=== PATIENT | female | born 1955 | race Caucasian/White ===

== ENCOUNTER 2023-12-22 01:09 | Outpatient (CLI) | payer MEDICARE, OTHER, SELFPAY ==
--- OUTSIDE RECORDS SUMMARY | 2023-12-22 01:11 | XMS_ITS | Continuity of Care Document ---
Author Organization [facility] Address [address] [place] [address] Care Team Providers Care Food Scientist Name Role Phone Wang Abdalla DO Primary Care Physician Encounter [facility] NBR [id number] Date(s): 12/23/22 - 12/23/22 [facility] [address] [place] [address]- [place] Discharge Disposition: Home Allergies, Adverse Reactions, Alerts Substance Reaction Severity Status morphine Anaphylaxis Severe Active penicillin V potassium Anaphylaxis Severe Activ e Bee Stings 1 Unknown Severe Active Spice 2 Unknown Unknown Active 1Outside Source Comment: ECW did not list reaction%2Fseverity 2Outside Source Comment: QUINN. 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[employer] Medications [facility] Prescription 8 EA, TEST DIRECTED TODAY, 0 Refill(s) Start Date: 06/23/22 Status: Ordered cefuroxime 500 mg oral tablet 1 tab, Oral, every 12 hr, # 60 tab, 5 Refill(s), Pharmacy: [facility] #[id number] Start Date: 10/07/22 Status: Ordered diclofenac 3% topical gel 100 g, APPLY TOPICALLY TO THE AFFECTED AREA TWICE DAILY., 0 Refill(s) Start Date: 06/23/22 Status: Ordered Eliquis 5 mg oral tablet 5 mg = 1 tab, Oral, BID, # 180 tab, 4 Refill(s), Pharmacy: [facility] #[id number] Start Date: 05/13/22 Stop Date: 08/06/23 Status: Ordered Fish Oil 1000 mg oral capsule 1,000 mg = 1 cap, Oral, Daily, # 90 cap, 0 Refill(s) Start Date: 05/13/22 Stop Date: 09/22/22 Status: Ordered gabapentin 300 mg oral capsule See Instructions, 1 capsule by mouth in the AM and 1 capsule in the PM as needed, and take 2 capsules at bedtime consistently, # 360 cap, 1 Refill(s), Pharmacy: [facility] #[id number] Start Date: 12/23/22 Status: Ordered antwan oral tablet 500 mg, Oral, Daily, # 90 cap, 0 Refill(s) Start Date: 05/13/22 Stop Date: 09/21/22 Status: Ordered Turmeric 500 mg =, Oral, Daily, # 90 cap, 0 Refill(s) Start Date: 05/13/22 Stop Date: 09/22/22 Status: Ordered Vitamin C 250 mg oral tablet 750 mg = 3 tab, Oral, Daily, # 270 cap, 0 Refill(s) Start Date: 05/13/22 Stop Date: 09/22/22 Status: Ordered Vitamin D3 50 mcg (2000 intl units) oral tablet, chewable 50 mcg = 1 tab, Oral, Daily, # 90 tab Start Date: 05/13/22 Stop Date: 09/22/22 Status: Ordered Problem List Condition Confirmation Course Effective Dates Status Health St atus Informant History of recurrent deep vein thrombosis (DVT) Confirmed Active Neuropathy of both feet Confirmed Active Obesity Confirmed Active Raynaud's phenomenon Confirmed Active Procedures Procedure Date Related Diagnosis Body Site Status Cholecystectomy Completed Social History Social History Type Response Tobacco Never tobacco user T obacco Use:. Sex Patient Care team information Care Team Personnel Name: Wang Abdalla DO Position: Physician Member Role: Primary Care Physician Address: Address: [address] [place] [phone] [place] Care Team Related Persons Name: RUTHIE PAZ Address: Home
--- OUTSIDE RECORDS SUMMARY | 2023-12-22 01:11 | XMS_ITS | Continuity of Care Document ---
Author Organization [facility] Address [address] [place] [address] Care Team Providers Care Drier And Pulverizer Tender Name Role Phone Wang Abdalla DO Primary Care Physician Encounter [facility] [facility] NBR [id number] Date(s): 07/15/22 - 07/15/22 [facility] [address] [place] [address] Discharge Disposition: Home Allergies, Adverse Reactions, Alerts Substance Reaction Severity Status morphine Anaphylaxis Severe Active penicillin V potassium Anaphylaxis Severe Activ e Bee Stings 1 Unknown Severe Active Spice 2 Unknown Unknown Active 1Outside Source Comment: ECW did not list reaction%2Fseverity 2Outside Source Comment: QUINN. 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[employer] Medications [facility] - Misc Prescription 8 EA, TEST DIRECTED TODAY, 0 Refill(s) Start Date: 06/23/22 Status: Ordered cefuroxime 500 mg oral tablet 500 mg = 1 tab, Oral, every 12 hr, # 60 tab, 1 Refill(s), Pharmacy: [facility] #[id number] Start Date: 05/13/22 Stop Date: 07/12/22 Status: Ordered diclofenac 3% topical gel 100 g, APPLY TOPICALLY TO THE AFFECTED AREA TWICE DAILY., 0 Refill(s) Start Date: 06/23/22 Status: Ordered Eliquis 5 mg oral tablet 5 mg = 1 tab, Oral, BID, # 180 tab, 4 Refill(s), Pharmacy: [facility] #[id number] Start Date: 05/13/22 Stop Date: 08/06/23 Status: Ordered Fish Oil 1000 mg oral capsule 1,000 mg = 1 cap, Oral, Daily, # 90 cap, 0 Refill(s) Start Date: 05/13/22 Stop Date: 09/22/22 Status: Ordered gabapentin 300 mg oral capsule See Instructions, 1 capsule in the AM, 1 in the PM, and 2 capsules at bedtime, # 360 cap, 0 Refill(s), Pharmacy: [facility] #[id number] Start Date: 06/13/22 Status: Ordered antwan oral tablet 500 mg, [...] Effective Dates Status Health St atus Informant DVT - Deep vein thrombosis Confirmed Active Lyme disease Confirmed Active Neuropathy of both feet Confirmed Active Patient Care team information Care Team Personnel Name: Wang Abdalla DO Position: Physician Member Role: Primary Care Physician Address: Address: [address] [place] [phone] [place] Care Team Related Persons Name: RUTHIE PAZ
--- OUTSIDE RECORDS SUMMARY | 2023-12-22 01:11 | XMS_ITS | Continuity of Care Document ---
Author Organization [facility] Ambulatory [facility] Address [address] [place] [address] Care Team Providers Care Stable Manager Name Role Phone Wang Abdalla DO Primary Care Physician Encounter [facility] [facility] NBR [id number] Date(s): 07/18/22 - 07/18/22 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[employer] Medications [facility] - Misc Prescription 8 EA, TEST DIRECTED TODAY, 0 Refill(s) Start Date: 06/23/22 Status: Ordered cefuroxime 500 mg oral tablet 500 mg = 1 tab, Oral, every 12 hr, # 60 tab, 1 Refill(s), Pharmacy: [facility] #[id number] Start Date: 05/13/22 Stop Date: 07/12/22 Status: Ordered diclofenac 3% topical gel 100 g, APPLY TOPICALLY TO THE AFFECTED AREA TWICE DAILY., 0 Refill(s) Start Date: 06/23/22 Status: Ordered Eliquis 5 mg oral tablet 5 mg = 1 tab, Oral, BID, # 180 tab, 4 Refill(s), Pharmacy: [facility] #[id number] Start Date: 05/13/22 Stop Date: 08/06/23 Status: Ordered Fish Oil 1000 mg oral capsule 1,000 mg = 1 cap, Oral, Daily, # 90 cap, 0 Refill(s) Start Date: 05/13/22 Stop Date: 09/22/22 Status: Ordered gabapentin 300 mg oral capsule See Instructions, 1 capsule in the AM, 1 in the PM, and 2 capsules at bedtime, # 360 cap, 0 Refill(s), Pharmacy: [facility] #[id number] Start Date: 06/13/22 Status: Ordered antwan oral [...] Member Role: Primary Care Physician Address: Address: [address] [place] [phone] [place] Care Team Related Persons Name: RUTHIE PAZ
--- OUTSIDE RECORDS SUMMARY | 2023-12-22 01:11 | XMS_ITS | Continuity of Care Document ---
Author Organization [facility] Address [address] [place] [phone] Care Team Providers Care Market Research Senior Project Manager Name Role Phone Wang Abdalla DO Primary Care Physician Encounter [facility] NBR [id number] Date(s): 07/15/22 - 07/15/22 [facility] [address] [place] [address] [place] Discharge Disposition: Home or Self Care Attending Physician: Wang Abdalla DO Admitting Physician: Wang Abdalla DO Referring Physician: Wang Abdalla DO Allergies, Adverse Reactions, Alerts Substance Reaction Severity Status morphine Anaphylaxis Severe Active penicillin V potassium Anaphylaxis Severe Activ e Bee Stings 1 Unknown Severe Active Spice 2 Unknown Unknown Active 1Outside Source Comment: ECW did not list reaction%2Fseverity 2Outside Source Comment: QUINN. 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 Medications [facility] - Misc Prescription 8 EA, TEST DIRECTED TODAY, 0 Refill(s) Start Date: 06/23/22 Status: Ordered cefuroxime 500 mg oral tablet 500 mg = 1 tab, Oral, every 12 hr, # 60 tab, 1 Refill(s), Pharmacy: [facility] #[id number] Start Date: 05/13/22 Stop Date: 07/12/22 Status: Ordered diclofenac 3% topical gel 100 g, APPLY TOPICALLY TO THE AFFECTED AREA TWICE DAILY., 0 Refill(s) Start Date: 06/23/22 Status: Ordered Eliquis 5 mg oral tablet 5 mg = 1 tab, Oral, BID, # 180 tab, 4 Refill(s), Pharmacy: [facility] #[id number] Start Date: 05/13/22 Stop Date: 08/06/23 Status: Ordered Fish Oil 1000 mg oral capsule 1,000 mg = 1 cap, Oral, Daily, # 90 cap, 0 Refill(s) Start Date: 05/13/22 Stop Date: 09/22/22 Status: Ordered gabapentin 300 mg oral capsule See Instructions, 1 capsule in the AM, 1 in the PM, and 2 capsules at bedtime, # 360 cap, 0 Refill(s), Pharmacy: [facility] #[id number] Start Date: 06/13/22 Status: Ordered antwan oral [...] Active Neuropathy of both feet Confirmed Active Results Orders for Microbiology Reports Name Date Sputum Culture 07/15/22 Microbiology Reports TEST:Sputum Culture STATUS:Modified/Amended/Cor BODY SITE: SOURCE:Sputum COLLECTED DATE/TIME:07/15/22 9:30 AM FINAL REPORT Spoke with Vicki at [facility] 07/15/2022 1331 zeb Sputum unsatisfactory for culture. Microscopic evaluation indicates significant upper respiratory contamination. Submit another specimen. STAIN REPORT 10-25 White Blood Cells >25 squamous epithelial cells Q Score 0, specimen unsuitable for culture Radiology Reports * Exam Date Time Procedure Performing Provider Status 07/15/22 11:28 AM XR Chest 1 View Cody Garduno ; Auth (Verified) Notes: (XR Chest 1 View) Reason For Exam: cough, rule out TB XR Chest 1 View EXAM DESCRIPTION: XR Chest 1 View 07/15/2022 INDICATION: COUGH, RULE OUT TB COMPARISON: CT chest examination from 05/11/2022 FINDINGS: No focal infiltrate or pulmonary edema. Increased density overlying the left lung base region consistent with soft tissue attenuation artifact. Small noncalcified nodular opacities described on previous CT chest examination are not well seen by routine radiography. Normal cardiomediastinal contour. No significant pleural effusion or pneumothorax. Spondylotic changes of the dorsal spine. IMPRESSION: No active chest disease. JOB #: [id number] Final Signed by: Alexander Roach MD Signed (Electronic Signature): 07/15/2022 12:44 pm XR Chest Single view * Alexander Roach MD: VERIFY, VERIFY Event Display: Report EXAM DESCRIPTION: XR Chest 1 View 07/15/2022 INDICATION: COUGH, RULE OUT TB COMPARISON: CT chest examination from 05/11/2022 FINDINGS: No focal infiltrate or pulmonary edema. Increased density overlying the left lung base region consistent with soft tissue attenuation artifact. Small noncalcified nodular opacities described on previous CT chest examination are not well seen by routine radiography. Normal cardiomediastinal contour. No significant pleural effusion or pneumothorax. Spondylotic changes of the dorsal spine. IMPRESSION: No active chest disease. JOB #: [id number] Final Signed by: Alexander Roach MD Signed (Electronic Signature): 07/15/2022 12:44 pm Patient Care team information Care Team Personnel Name: Wang Abdalla DO Position: Physician Member Role: Primary Care Physician Address: Address: [address] [place] [phone] [place] Care Team Related Persons Name: RUTHIE PAZ
--- OUTSIDE RECORDS SUMMARY | 2023-12-22 01:11 | XMS_ITS | Continuity of Care Document ---
Author Organization [facility] Ambulatory Clinics Address [address] [place] [address] Care Team Providers Care Ethernet Network Architect Name Role Phone Wang Abdalla DO Primary Care Physician [phone] Encounter [facility] NBR [id number] Date(s): 12/23/22 - 12/23/22 [facility] Ambulatory Clinics [address] [place] [address] [place] Encounter Diagnosis Neuropathy of both feet(Discharge Diagnosis) - 12/16/22 History of recurrent deep vein thrombosis (DVT)(Discharge Diagnosis) - 12/16/22 Raynaud's phenomenon(Discharge Diagnosis) - 12/23/22 History of Lyme disease(Discharge Diagnosis) - 12/23/22 Discharge Disposition: Home or Self Care Attending Physician: Elena Monae MD Allergies, Adverse Reactions, Alerts Substance Reaction Severity Status morphine Anaphylaxis Severe Active penicillin V potassium Anaphylaxis Severe Activ e Bee Stings 1 Unknown Severe Active Spice 2 Unknown Unknown Active 1Outside Source Comment: ECW did not list reaction%2Fseverity 2Outside Source Comment: ECW did not specify reaction%2Fseverity Functional Status 12/23/22 Other exposure to Infectious Disease Non e Immunizations Given and Recorded Vaccine Date Status Refusal Reason SARS-CoV-2 (COVID-19) mRNA-1273 vaccine 1 07/06/21 Recorded influenza, unspecified formulation 2 03/15/21 Gumaro rded 1Result Comment: Unit: Unknown 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[employer] Medications [facility] - Misc Prescription 8 EA, TEST DIRECTED TODAY, 0 Refill(s) Start Date: 06/23/22 Status: Ordered cefuroxime 500 mg oral tablet 1 tab, Oral, every 12 hr, # 60 tab, 5 Refill(s), Pharmacy: [facility] #[id number] Start Date: 10/07/22 Status: Ordered diclofenac 3% topical gel 100 g, APPLY TOPICALLY TO THE AFFECTED AREA TWICE DAILY., 0 Refill(s) Start Date: 06/23/22 Status: Ordered Eliquis 5 mg oral tablet 5 mg = 1 tab, Oral, BID, # 180 tab, 4 Refill(s), Pharmacy: [facility] #[id number] Start Date: 05/13/22 Stop Date: 08/06/23 Status: [...] consistently, # 360 cap, 1 Refill(s), Pharmacy: [facility] #[id number] Start Date: 12/23/22 Status: Ordered antwan oral [...] Related Diagnosis Body Site Status Cholecystectomy Completed Vital Signs Most recent to oldest [Reference Range]: 1 Peripheral Pulse Rate [60-100 bpm] 75 bp m (12/23/22 1:41 PM) Blood Pressure [90-140/60-90 mmHg] 120/8 4mmHg (12/23/22 1:41 PM) Weight 118.7 kg (12/23/22 1:41 PM) Weight Measured (lbs) 261.688 lb (12/23/22 1:41 PM) [place] Body Weight Calculated 50.1 kg (12/23/22 1:41 PM) Height 157.48 cm (12/23/22 1:41 PM) Height/Length Measured (inches) 62 inch (12/23/22 1:41 PM) BSA Measured 2.28 m2 (12/23/22 1:41 PM) Body Mass Index 47.86 kg/m2 (12/23/22 1:41 PM) Social History Social History Type Response Tobacco Never tobacco user T obacco Use:. Sex Physician Outpatient Note * Elena Monae MD: PERFORM Event Display: Office Clinic Note Physician Authored Date: [id number] JEREMY JONAS :1955 Age:67 years Sex:Female Visit Date:12/23/2022 Primary Care Physician: Wang Abdalla DO Chief Complaint Med follow up. History of Present Illness Presents for follow-up/medication review. Last seen in office 05/2021, had telephone visit 06/2022. Accompanied by her Roejlio today. She avoids in-facility visits due to Covid isolation concerns related to her weak immune system. Takes gabapentin for neuropathy, consistently takes??600 mg QHS and in addition she variably takes 300 mg BID as daytime doses as needed, notes it makes her sleepy but some days she does need the full 1200 mg dose to control her symptoms. Neuropathy started after her Lyme infection,??affects her legs up to her knees and also her hands, worst affected area is the bottom of her feet, feels like electric zingers or like walking acrossshards of glass. Her hands turn yellow, purple, and white, like a corpse when exposed to cold. Worsening over time- tries to keep her hands warm, wears mittens consistently. Review of Systems as per HPI Physical Exam Vitals & Measurements HR:??75??(Peripheral)?? BP:??120/84?? SpO2:??99%?? HT:??157.48??cm?? WT:??118.7??kg?? BMI:??47.86?? BSA:??2.28?? Gen: obese, well-appearing, in no acute distress CV: regular rate and rhythm, no murmurs Resp: normal respiratory effort, lungs clear to auscultation bilaterally Ext: no edema or skin lesions on feet, no loss of sensation in area of neuropathic pain (bilateral lower legs and feet and both hands) Psych/MSE: attentive,??normal mood, appropriate affect Assessment/Plan 1.??Neuropathy of both feet??G57.93 stable on gabapentin 300 mg BID PRN??+ 600 mg QHS consistently reviewed with her that gabapentin is a??schedule V controlled medication under the SOFY and requiresin-person review annually - she is understanding of this requirement 2.??History of Lyme disease??Z86.19 attributed cause of her neuropathic pain 3.??Raynaud's phenomenon??I73.00 encouraged ongoing warming techniques including mittens and adequate heating offered nifedipine orally and topical nitroglycerin, she does not feel that further medications areneeded at this time 4.??History of recurrent deep vein thrombosis (DVT)??Z86.718 stable on Eliquis 5 mg BID Orders: gabapentin 300 mg oral capsule, See Instructions, 1 capsule by mouth in the AM and 1 capsule in thePM as needed, and take 2 capsules at bedtime consistently, # 360 cap, 1 Refill(s), Pharmacy: [facility] #[id number] Problem List/Past Medical History Ongoing History of recurrent deep vein thrombosis (DVT) Neuropathy of both feet Obesity Raynaud's phenomenon Procedure/Surgical History ???Cholecystectomy Medications AAA - Misc Prescription cefuroxime 500 mg oral tablet, 1 tab, Oral, every 12 hr diclofenac 3% topical gel Eliquis 5 mg oral tablet, 5 mg= 1 tab, Oral, BID, 4 refills Fish Oil 1000 mg oral capsule, 1000 mg= 1 cap, Oral, Daily gabapentin 300 mg oral capsule, See Instructions antwan oral tablet, 500 mg, Oral, Daily Turmeric, 500 mg, Oral, Daily Vitamin C 250 mg oral tablet, 750 mg= 3 tab, Oral, Daily Vitamin D3 50 mcg (2000 intl units) oral tablet, chewable, 50 mcg= 1 tab, Oral, Daily Allergies Bee Stings??(Unknown) morphine??(Anaphylaxis) penicillin V potassium??(Anaphylaxis) Spice??(Unknown) Social History Alcohol Never Electronic Cigarette/Vaping Electronic Cigarette Use: Never. Substance Use Never Tobacco Never tobacco user Tobacco Use:. Immunizations Vaccine Date Status SARS-CoV-2 (COVID-19) mRNA-1273 vaccine 07/06/2021 Recorded Comments : Unit: Unknown influenza, unspecified formulation 03/15/2021 Recorded Comments : Ground Transportation Operator: Sanofi Pasteur Electronically Signed on 12/23/22 04:26 PM Elena Monae MD Patient Care team information Care Team Personnel Name: Wang Abdalla DO Position: Physician Member Role: Primary Care Physician Address: Address: [address] [place] [phone] [place] Care Team Related Persons Name: ROJELIO PAZ Address: Home
--- OUTSIDE RECORDS SUMMARY | 2023-12-22 01:11 | XMS_ITS | Continuity of Care Document ---
Author Organization [facility] Address [address] [place] [address] Care Team Providers Care Director Pharmacovigilance Name Role Phone Wang Abdalla DO Primary Care Physician Encounter [facility] NBR [id number] Date(s): 07/11/22 - 07/11/22 [facility] [address] [place] [address]- [place] Discharge Disposition: Home Allergies, Adverse Reactions, Alerts Substance Reaction Severity Status morphine Anaphylaxis Severe Active penicillin V potassium Anaphylaxis Severe Activ e Bee Stings 1 Unknown Severe Active Spice 2 Unknown Unknown Active 1Outside Source Comment: ECW did not list reaction%2Fseverity 2Outside Source Comment: QUINN. 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[employer] Medications [facility] - Misc Prescription 8 EA, TEST DIRECTED TODAY, 0 Refill(s) Start Date: 06/23/22 Status: Ordered cefuroxime 500 mg oral tablet 500 mg = 1 tab, Oral, every 12 hr, # 60 tab, 1 Refill(s), Pharmacy: [facility] #[id number] Start Date: 05/13/22 Stop Date: 07/12/22 Status: Ordered diclofenac 3% topical gel 100 g, APPLY TOPICALLY TO THE AFFECTED AREA TWICE DAILY., 0 Refill(s) Start Date: 06/23/22 Status: Ordered Eliquis 5 mg oral tablet 5 mg = 1 tab, Oral, BID, # 180 tab, 4 Refill(s), Pharmacy: [facility] #[id number] Start Date: 05/13/22 Stop Date: 08/06/23 Status: Ordered Fish Oil 1000 mg oral capsule 1,000 mg = 1 cap, Oral, Daily, # 90 cap, 0 Refill(s) Start Date: 05/13/22 Stop Date: 09/22/22 Status: Ordered gabapentin 300 mg oral capsule See Instructions, 1 capsule in the AM, 1 in the PM, and 2 capsules at bedtime, # 360 cap, 0 Refill(s), Pharmacy: [facility] #[id number] Start Date: 06/13/22 Status: Ordered antwan oral [...] Member Role: Primary Care Physician Address: Address: [address] [place] [phone] [place] Care Team Related Persons Name: RUTHIE PAZ
--- OUTSIDE RECORDS SUMMARY | 2023-12-22 01:11 | XMS_ITS | Continuity of Care Document ---
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[employer] Medications AAA - Misc Prescription 8 EA, TEST DIRECTED TODAY, 0 Refill(s) Start Date: 06/23/22 Status: Ordered cefuroxime 500 mg oral tablet 500 mg = 1 tab, Oral, every 12 hr, # 60 tab, 1 Refill(s), Pharmacy: [facility] #[id number] Start Date: 05/13/22 Stop Date: 07/12/22 Status: Ordered diclofenac 3% topical gel 100 g, APPLY TOPICALLY TO THE AFFECTED AREA TWICE DAILY., 0 Refill(s) Start Date: 06/23/22 Status: Ordered Eliquis 5 mg oral tablet 5 mg = 1 tab, Oral, BID, # 180 tab, 4 Refill(s), Pharmacy: [facility] #[id number] Start Date: 05/13/22 Stop Date: 08/06/23 Status: Ordered Fish Oil 1000 mg oral capsule 1,000 mg = 1 cap, Oral, Daily, # 90 cap, 0 Refill(s) Start Date: 05/13/22 Stop Date: 09/22/22 Status: Ordered gabapentin 300 mg oral capsule See Instructions, 1 capsule in the AM, 1 in the PM, and 2 capsules at bedtime, # 360 cap, 0 Refill(s), Pharmacy: [facility] #[id number] Start Date: 06/13/22 Status: Ordered antwan oral [...] Member Role: Primary Care Physician Address: Address: [address] [place] [phone] [place] Care Team Related Persons Name: RUTHIE PAZ
--- OUTSIDE RECORDS SUMMARY | 2023-12-22 01:11 | XMS_ITS | Continuity of Care Document ---
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: [employer] Medications [facility] [place] 8 EA, TEST DIRECTED TODAY, 0 Refill(s) Start Date: 06/23/22 Status: Ordered cefuroxime 500 mg oral tablet 1 tab, Oral, every 12 hr, # 60 tab, 5 Refill(s), Pharmacy: [id number] Start Date: 10/07/22 Status: Ordered diclofenac 3% topical gel 100 g, APPLY TOPICALLY TO THE AFFECTED AREA TWICE DAILY., 0 Refill(s) Start Date: 06/23/22 Status: Ordered Eliquis 5 mg oral tablet 5 mg = 1 tab, Oral, BID, # 180 tab, 4 Refill(s), Pharmacy: [id number] Start Date: 05/13/22 Stop Date: 08/06/23 Status: [...] consistently, # 360 cap, 1 Refill(s), Pharmacy: [id number] #[id number] Start Date: 12/23/22 Status: Ordered antwan oral [...] Member Role: Primary Care Physician Address: Address: [address] [place] [phone] [place] Care Team Related Persons Name: RUTHIE PAZ Address: Home
--- OUTSIDE RECORDS SUMMARY | 2023-12-22 01:11 | XMS_ITS | Continuity of Care Document ---
Author Organization [facility] Address [address] [place] [address] Care Team Providers Care Bridal Service Sales And Management Name Role Phone Wang Abdalla DO Primary Care Physician Encounter [facility] NBR [id number] Date(s): 11/29/22 - 11/29/22 [facility] [address] [place] [address]- Encounter Diagnosis Other nonspecific abnormal finding of lung field(Final) - Other fatigue(Final) - Pain in unspecified joint(Final) - Encounter for screening for other metabolic disorders(Final) - Encounter for screening for lipoid disorders(Final) - Discharge Disposition: Home or Self Care Attending [...] Assessment and Plan Diagnostic Tests Pending * Rheumatoid Arthritis Factor LC 11/29/22 Immunizations Given and Recorded Vaccine Date Status Refusal Reason SARS-CoV-2 (COVID-19) [id number] vaccine 1 07/06/21 Recorded influenza, unspecified formulation 2 03/15/21 Gumaro rded 1Result Comment: Unit: Unknown 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: [employer] Medications [facility] - Misc Prescription 8 EA, TEST DIRECTED TODAY, 0 Refill(s) Start Date: 06/23/22 Status: Ordered cefuroxime 500 mg oral tablet 1 tab, Oral, every 12 hr, # 60 tab, 5 Refill(s), Pharmacy: [facility] #[id number] Start Date: 10/07/22 Status: Ordered diclofenac 3% topical gel 100 g, APPLY TOPICALLY TO THE AFFECTED AREA TWICE DAILY., 0 Refill(s) Start Date: 06/23/22 Status: Ordered Eliquis 5 mg oral tablet 5 mg = 1 tab, Oral, BID, # 180 tab, 4 Refill(s), Pharmacy: [facility] #[id number] Start Date: 05/13/22 Stop Date: 08/06/23 Status: Ordered Fish Oil 1000 mg oral capsule 1,000 mg = 1 cap, Oral, Daily, # 90 cap, 0 Refill(s) Start Date: 05/13/22 Stop Date: 09/22/22 Status: Ordered gabapentin 300 mg oral capsule See Instructions, 1 capsule in the AM, 1 in the PM, and 2 capsules at bedtime, # 360 cap, 0 Refill(s), Pharmacy: [facility] #[id number] Start Date: 09/08/22 Status: Ordered antwan oral tablet 500 mg, [...] Neuropathy of both feet Confirmed Active Results Laboratory List Name Date DILIP w/Reflex LC 11/29/22 C-Reactive Protein 11/29/22 Comprehensive Metabolic Panel (CMP) Lipid Panel 11/29/22 Vitamin B12 Level 11/29/22 Vitamin D 25 Hydroxy Level 11/29/22 Most recent to oldest [Reference Range]: 1 BUN [8-26 mg/dL] 10 mg/dL (11/29/22 12:24 PM) Cholesterol Total [129-209 mg/dL] 205 mg /dL (11/29/22 12:24 PM) LDL 133.8 1 *NA* (11/29/22 PM) Glucose Level [74-106 mg/dL] 94 mg/dL (11/29/22 12: PM) Potassium Level [3.5-5.1 mmol/L] 4.7 mmo l/L (11/29/22 12 PM) HDL [40-80 mg/dL] 38 mg/dL *LOW* (11/29/22 PM) CRP [<=10.0 mg/L] <8.0 mg/L (11/29/22 PM) AST [15-41 IntlUnit/L] 42 IntlUnit/L *HI* (11/29/22: PM) ALT [14-54 IntlUnit/L] 59 IntlUnit/L *HI* (11/29/22:24 PM) Osmolality [275-295 mOsm/kg] 273 mOsm/kg *LOW* (11/29/22 PM) Sodium Level [134-143 mmol/L] 137 mmol/L (11/29/22:24 PM) Chol/HDL 5.4 2 *NA* (11/29/22: PM) Vitamin D 25 OH [30.0-100.0 ng/mL] 27.7 ng/mL 3 *LOW* (11/29/22 PM) Triglycerides [10-150 mg/dL] 167 mg/dL *HI* (11/29/22:24 PM) Calcium Level [8.9-10.3 mg/dL] 9.7 mg/dL (11/29/22 12:24 PM) Albumin Level [3.5-5.0 g/dL] 4.0 g/dL (11/29/22 PM) Protein Total [6.5-8.1 g/dL] 7.3 g/dL (11/29/22 12:24 PM) Bilirubin Total [0.2-1.2 mg/dL] 0.8 mg/d L (11/29/22 12:24 PM) B12 Level [180-914 pg/mL] 300 pg/mL (11/29/22 12:24 PM) Alk Phos [38-130 IntlUnit/L] 106 IntlUni t/L (11/29/22 12:24 PM) CO2 [22-32 mmol/L] 28 mmol/L (11/29/22 12:24 PM) Chloride Level [98-111 mmol/L] 100 mmol/ L (11/29/22 12:24 PM) A/G Ratio [1.0-2.5 g/dL] 1.2 g/dL (11/29/22 12:24 PM) BUN/Creat Ratio [8.0-20.0] 10.9 (11/29/22 12:24 PM) Globulin [2.3-3.5 g/dL] 3.3 g/dL (11/29/22 12:24 PM) DILIP Direct LC [Negative] Negative 4 *NA* (11/29/22 12:24 PM) Creatinine Level [0.44-1.00 mg/dL] 0.92 mg/dL (11/29/22 12:24 PM) Anion Gap [3.0-12.0] 9.0 (11/29/22 12:24 PM) eGFR CKD-EPI [>=60 mL/min/1.73 m2] 68 mL /min/1.73 m2 (11/29/22 12:24 PM) 1Interpretive Data: Optimal: Less than 100 mg/dL Above Optimal: 100 - 129 mg/dL Borderline High: 130 - 159 mg/dL High: 160 - 189 mg/dL Very High: > or = 190 mg/dL 2Interpretive Data: RISK MALE FEMALE 1/2 average 3.4 3.3 Average 5.0 4.4 2x Average 9.6 7.1 3x Average 23.4 11.0 3Interpretive Data: VIT D STATUS: RANGE: Deficient <20 ng/mL Insufficiency 20-30 ng/mL Sufficiency 30-100 ng/mL Toxicity >100 ng/mL Patients that have undergone flourescein dye angiography without allowing enough time for clearanceof the flourescein dye may have falsely elevated Vitamin D levels. 4Result Comment: Performed At: [facility] [address] [id number] Cory Rivas MD Ph:[phone] Radiology Reports * Exam Date Time Procedure Performing Provider Status 11/29/22 12:[address] Chest w/o Contrast Sandy Cat; Nikolas (Verified) Notes: (CT Chest w/o Contrast) Reason For Exam: pulmonary nodules CT Chest w/o Contrast EXAM DESCRIPTION: CT Chest w/o Contrast 11/29/2022 INDICATION: PULMONARY NODULES TECHNIQUE: All CT scans at this facility use at least one of these dose optimization techniques: Automated exposure control; mA and/or kV adjustment per patient size (includes targeted exams where dose is matched to clinical indication); or iterative reconstruction. Technique: Axial CT images of the chest without intravenous contrast administration COMPARISON: CT chest without contrast from 05/11/[address] angiography chest examination from 10/20/2021 FINDINGS: Mediastinal evaluation is limited by lack of IV contrast. No mediastinal mass or adenopathy is identified. No axillary adenopathy. No pericardial effusion. Normal caliber thoracic aorta. Coronary artery calcification is noted The tiny noncalcified nodular opacities in seen the right apex and lateral aspect of the left upper lobe on 05/11/2022 examination are no longer identified. Noncalcified nodular opacities along the major fissure in the left lower chest appear without significant change from prior studies with tiny pleural-based nodular opacity in the posterior aspect of the left lower lobe as well without significant change. Follow-up examination in approximately 1 year is recommended to document continued stability. No additional pulmonary nodule. Stable mild scarring in the right middle lobe and left lower lobe. No central endobronchial filling defect identified No pleural effusion or pneumothorax The visualized upper abdomen demonstrates a normal unenhanced CT appearance except for nonobstructing left renal calculus and previous cholecystectomy No suspicious regional osseous lesions. Spondylotic changes in the visualized spinal axis. IMPRESSION: Small noncalcified nodules along the left major fissure in the lower chest as well as in the posterior aspect of the left lower lobe appear without significant change from previous CT chest examinations. Tiny nodules in both upper lobes described on 05/11/2022 examination are no longer seen. Follow-up examination in approximately 1 year is recommended to assess for continued stability. No new pulmonary nodule. JOB #: [id number] Final Signed by: Alexander Roach MD Signed (Electronic Signature): 11/29/2022 1:05 pm Patient Care team information Care Team Personnel Name: Wang Abdalla DO Position: Physician Member Role: Primary Care Physician Address: Address: [address] [place] [phone] [place] Care Team Related Persons Name: RUTHIE PAZ Address: Home
--- OUTSIDE RECORDS SUMMARY | 2023-12-22 01:11 | XMS_ITS | Continuity of Care Document ---
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[employer] Medications [facility] - Misc Prescription 8 EA, TEST DIRECTED TODAY, 0 Refill(s) Start Date: 06/23/22 Status: Ordered cefuroxime 500 mg oral tablet 500 mg = 1 tab, Oral, every 12 hr, # 60 tab, 1 Refill(s), Pharmacy: [facility] #[id number] Start Date: 05/13/22 Stop Date: 07/12/22 Status: Ordered diclofenac 3% topical gel 100 g, APPLY TOPICALLY TO THE AFFECTED AREA TWICE DAILY., 0 Refill(s) Start Date: 06/23/22 Status: Ordered Eliquis 5 mg oral tablet 5 mg = 1 tab, Oral, BID, # 180 tab, 4 Refill(s), Pharmacy: [facility] #[id number] Start Date: 05/13/22 Stop Date: 08/06/23 Status: Ordered Fish Oil 1000 mg oral capsule 1,000 mg = 1 cap, Oral, Daily, # 90 cap, 0 Refill(s) Start Date: 05/13/22 Stop Date: 09/22/22 Status: Ordered gabapentin 300 mg oral capsule See Instructions, 1 capsule in the AM, 1 in the PM, and 2 capsules at bedtime, # 360 cap, 0 Refill(s), Pharmacy: [facility] #[id number] Start Date: 06/13/22 Status: Ordered antwan oral [...] Role: Primary Care Physician Address: Address: [address] [place] [phone] [place] Care Team Related Persons Name: RUTHIE PAZ
--- OUTSIDE RECORDS SUMMARY | 2023-12-22 01:11 | XMS_ITS | Continuity of Care Document ---
Author Organization [facility] Address [address] [place] [address] Care Team Providers Care African History Professor Name Role Phone Wang Abdalla DO Primary Care Physician [phone] Encounter [facility] NBR [id number] Date(s): 10/14/22 - 10/14/22 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[employer] Medications [facility] - Misc Prescription 8 EA, TEST DIRECTED TODAY, 0 Refill(s) Start Date: 06/23/22 Status: Ordered cefuroxime 500 mg oral tablet 1 tab, Oral, every 12 hr, # 60 tab, 5 Refill(s), Pharmacy: [facility] #[id number] Start Date: 10/07/22 Status: Ordered diclofenac 3% topical gel 100 g, APPLY TOPICALLY TO THE AFFECTED AREA TWICE DAILY., 0 Refill(s) Start Date: 06/23/22 Status: Ordered Eliquis 5 mg oral tablet 5 mg = 1 tab, Oral, BID, # 180 tab, 4 Refill(s), Pharmacy: [facility] #[id number] Start Date: 05/13/22 Stop Date: 08/06/23 Status: Ordered Fish Oil 1000 mg oral capsule 1,000 mg = 1 cap, Oral, Daily, # 90 cap, 0 Refill(s) Start Date: 05/13/22 Stop Date: 09/22/22 Status: Ordered gabapentin 300 mg oral capsule See Instructions, 1 capsule in the AM, 1 in the PM, and 2 capsules at bedtime, # 360 cap, 0 Refill(s), Pharmacy: [facility] #[id number] Start Date: 09/08/22 Status: Ordered antwan oral [...] Member Role: Primary Care Physician Address: Address: [address] [place] [phone] [place] Care Team Related Persons Name: RUTHIE PAZ
--- OUTSIDE RECORDS SUMMARY | 2023-12-22 01:11 | XMS_ITS | Continuity of Care Document ---
Author Organization [facility] Address [address] [place] [phone] Care Team Providers Care Unhairing Inspector Name Role Phone Wang Abdalla DO Primary Care Physician Encounter [facility] NBR [id number] Date(s): 05/11/22 - 05/11/[address] [address]- Encounter Diagnosis Other nonspecific abnormal finding of lung field(Final) - Discharge Disposition: Home or Self Care Attending Physician: Wang Abdalla DO Admitting Physician: Wang Abdalla DO Referring Physician: Wang Abdalla DO Results Radiology Reports * Exam Date Time Procedure Performing Provider Status 05/11/22 2:[address] Chest w/o Contrast Monae De La Rosa ; Nikolas (Verified) Notes: (CT Chest w/o Contrast) Reason For Exam: Left lobe pulmonary nodules follow up CT Chest w/o Contrast EXAM DESCRIPTION: CT Chest w/o Contrast 05/11/2022 INDICATION: LEFT LOBE PULMONARY NODULES FOLLOW UP TECHNIQUE: All CT scans at this facility use at least one of these dose optimization techniques: Automated exposure control; mA and/or kV adjustment per patient size (includes targeted exams where dose is matched to clinical indication); or iterative reconstruction. Technique: Axial CT images of the chest without intravenous contrast administration COMPARISON: CT angio chest examination from 10/20/2021 FINDINGS: Mediastinal evaluation is limited by lack of IV contrast. No mediastinal mass or adenopathy identified. No axillary adenopathy. No pericardial effusion. Normal caliber thoracic aorta. The previously described 2 noncalcified nodular opacities in the left lower lung field along the major fissure appear without significant change measuring approximately 6 mm in maximum dimension. Tiny pleural-based noncalcified nodular opacity in the lateral aspect of the left upper lobe on image number 72 measuring a few mm in size not definitely seen previously. Tiny noncalcified nodular opacity in the posterior right apex on image number 26 which appears new since prior study. Follow-up CT examination in approximately 12 months is recommended to assess for stability. No focal infiltrate. Stable mild curvilinear scarring in the right midlung field and left lower lobe. No significant emphysematous changes. No central endobronchial filling defect identified No pleural effusion or pneumothorax. The visualized upper abdomen demonstrates a normal unenhanced CT appearance except for small nonobstructing left renal calculus and previous cholecystectomy. No suspicious regional osseous lesions. Spondylotic changes in the visualized spinal axis. IMPRESSION: The previously described noncalcified nodular opacities in the left lower lung field along the major fissure appear without significant change. New tiny noncalcified nodular opacities are noted as detailed above. Follow-up CT chest examination in approximately 12 months is recommended to assess stability. No focal infiltrate. Mild curvilinear scarring in the right midlung field and left lower lobe without significant change. JOB #: [id number] Final Signed by: Alexander Roach MD Signed (Electronic Signature): 05/12/2022 8:[address] Chest WO contrast * Alexander Roach MD: VERIFY, VERIFY Event Display: Report EXAM DESCRIPTION: CT Chest w/o Contrast 05/11/2022 INDICATION: LEFT LOBE PULMONARY NODULES FOLLOW UP TECHNIQUE: All CT scans at this facility use at least one of these dose optimization techniques: Automated exposure control; mA and/or kV adjustment per patient size (includes targeted exams where dose is matched to clinical indication); or iterative reconstruction. Technique: Axial CT images of the chest without intravenous contrast administration COMPARISON: CT angio chest examination from 10/20/2021 FINDINGS: Mediastinal evaluation is limited by lack of IV contrast. No mediastinal mass or adenopathy identified. No axillary adenopathy. No pericardial effusion. Normal caliber thoracic aorta. The previously described 2 noncalcified nodular opacities in the left lower lung field along the major fissure appear without significant change measuring approximately 6 mm in maximum dimension. Tiny pleural-based noncalcified nodular opacity in the lateral aspect of the left upper lobe on image number 72 measuring a few mm in size not definitely seen previously. Tiny noncalcified nodular opacity in the posterior right apex on image number 26 which appears new since prior study. Follow-up CT examination in approximately 12 months is recommended to assess for stability. No focal infiltrate. Stable mild curvilinear scarring in the right midlung field and left lower lobe. No significant emphysematous changes. No central endobronchial filling defect identified No pleural effusion or pneumothorax. The visualized upper abdomen demonstrates a normal unenhanced CT appearance except for small nonobstructing left renal calculus and previous cholecystectomy. No suspicious regional osseous lesions. Spondylotic changes in the visualized spinal axis. IMPRESSION: The previously described noncalcified nodular opacities in the left lower lung field along the major fissure appear without significant change. New tiny noncalcified nodular opacities are noted as detailed above. Follow-up CT chest examination in approximately 12 months is recommended to assess stability. No focal infiltrate. Mild curvilinear scarring in the right midlung field and left lower lobe without significant change. JOB #: [id number] Final Signed by: Alexander Roach MD Signed (Electronic Signature): 05/12/2022 8:48 am Patient Care team information Care Team Personnel Name: Wang Abdalla DO Position: Physician Member Role: Primary Care Physician Address: Address: [address] [place] [phone] [place] Care Team Related Persons Name: RUTHIE PAZ
--- OUTSIDE RECORDS SUMMARY | 2023-12-22 01:11 | XMS_ITS | Continuity of Care Document ---
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: [employer] Medications [facility] Prescription 8 EA, TEST DIRECTED TODAY, 0 Refill(s) Start Date: 06/23/22 Status: Ordered cefuroxime 500 mg oral tablet 1 tab, Oral, every 12 hr, # 60 tab, 5 Refill(s), Pharmacy: [facility] #[id number] Start Date: 10/07/22 Status: Ordered diclofenac 3% topical gel 100 g, APPLY TOPICALLY TO THE AFFECTED AREA TWICE DAILY., 0 Refill(s) Start Date: 06/23/22 Status: Ordered Eliquis 5 mg oral tablet 5 mg = 1 tab, Oral, BID, # 180 tab, 4 Refill(s), Pharmacy: [facility] #[id number] Start Date: 05/13/22 Stop Date: 08/06/23 Status: Ordered Fish Oil 1000 mg oral capsule 1,000 mg = 1 cap, Oral, Daily, # 90 cap, 0 Refill(s) Start Date: 05/13/22 Stop Date: 09/22/22 Status: Ordered gabapentin 300 mg oral capsule See Instructions, 1 capsule in the AM, 1 in the PM, and 2 capsules at bedtime, # 360 cap, 0 Refill(s), Pharmacy: [facility] #[id number] Start Date: 09/08/22 Status: Ordered antwan oral [...] Member Role: Primary Care Physician Address: Address: [address] [place] [phone] [place] Care Team Related Persons Name: RUTHIE PAZ Address: Home
--- OUTSIDE RECORDS SUMMARY | 2023-12-22 01:11 | XMS_ITS | Continuity of Care Document ---
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[employer] Medications [facility] - Misc Prescription 8 EA, TEST DIRECTED TODAY, 0 Refill(s) Start Date: 06/23/22 Status: Ordered cefuroxime 500 mg oral tablet 500 mg = 1 tab, Oral, every 12 hr, # 60 tab, 1 Refill(s), Pharmacy: [facility] #[id number] Start Date: 05/13/22 Stop Date: 07/12/22 Status: Ordered diclofenac 3% topical gel 100 g, APPLY TOPICALLY TO THE AFFECTED AREA TWICE DAILY., 0 Refill(s) Start Date: 06/23/22 Status: Ordered Eliquis 5 mg oral tablet 5 mg = 1 tab, Oral, BID, # 180 tab, 4 Refill(s), Pharmacy: [facility] #[id number] Start Date: 05/13/22 Stop Date: 08/06/23 Status: Ordered Fish Oil 1000 mg oral capsule 1,000 mg = 1 cap, Oral, Daily, # 90 cap, 0 Refill(s) Start Date: 05/13/22 Stop Date: 09/22/22 Status: Ordered gabapentin 300 mg oral capsule See Instructions, 1 capsule in the AM, 1 in the PM, and 2 capsules at bedtime, # 360 cap, 0 Refill(s), Pharmacy: [facility] #[id number] Start Date: 06/13/22 Status: Ordered antwan oral [...] Member Role: Primary Care Physician Address: Address: [address] [place] [phone] [place] Care Team Related Persons Name: RUTHIE PAZ
--- OUTSIDE RECORDS SUMMARY | 2023-12-22 01:12 | XMS_ITS | Encounter Summary ---
Author Organization [facility] Address [address] [place] [address] Care Team Providers Care Disk Sharpener Name Role Phone Venice Davenport MD Primary Care Provider + [phone] Unknown, Provider Primary Care Provider [phone] Venice Davenport MD Unavailable [phone] Encounter Details Date Type Department Care Team (Late st Contact Info) Description 02/13/2017 Results Only [facility] [phone] Lex Munoz, [address] [facility] [address] [place], [place] [id number] Social History Tobacco Use Types Packs/Day Years Used Date Smoking Tobacco: Never Assessed Sex and Gender Information Value Date Recorded Sex Assigned at Not on file Gender Identity Female 05/11/2021 12:29 EST Sexual Orientation Not on file documented as of this encounter Plan of Treatment Not on file documented as of this encounter Procedures Procedure Name Priority Date/Time Associated Diagnosis Comments SURGICAL PATHOLOGY Routine 02/13/2017 9:02 EST documented in this encounter Results * SURGICAL PATHOLOGY (02/13/2017 9:02 EST) Pathology Report: SURGICAL PATHOLOGY REPORT Reports generated via electronic interface contain original data; however they are lacking the format of the original report. Caution should be taken when reading/interpret ing unformatted reports. Name: ? CAROLYNN CODY ? Accession #: ? [id number] ? : ? 1955 (Age: 61) ??F ? Collect Date: ? 02/13/2017 ? Location: ? [facility] ? Receive Date: ? 02/14/2017 ? Provider: LEX MUNOZ DO Copy to: JUAN GARCIA MD ? Final Pathologic Diagnosis: GALLBLADDER, CHOLECYSTECTOMY: - Chronic cholecystitis and cholelithiasis. Document reviewed and electronically signed by: VIRGIL THAYER MD Report ??Date: 02/17/2017 08:40 By the signature above, the attending physician certifies that he/she has personally conducted a gross and/or microscopic examination of the described specimens and rendered or confirmed the above diagnosis. Specimen(s) Received: Gallbladder Clinical History: Biliary colic/cholelithia sis Gross Description: ? Received in formalin labelled with proper patient identification (initials K, R) and gallbladder is an intact gallbladder (10.1 x 3.5 x 3.0 cm). The cystic duct margin is inked blue. ? The serosa is grider-purple with petechial hemorrhage and a focus of a thickened white exudate. The mucosa is bile-stained green and roughened with a trabeculated appearance. The average wall thickness is 0.2 cm. Within the cavity are large amounts of black bile and two ovoid gallstones measuring 2.5 and 4.3 cm in greatest dimension. The cystic duct margin, en face, and two cross-sections are submitted in 1. TABITHA Richardson (ASCP) 02/14/2017 11:06 AM End of Report [facility] 02/13/2017 9:02 EST 02/14/2017 9:02 EST Lex Munoz DO PATHOLOGY ORDER MARGARETH [facility] [address] [place] [address] documented in this encounter Visit Diagnoses Not on filedocumented in this encounter Care Teams Disk Sharpener Relationship Specialty Start Date End Date Venice Davenport MD [address] [place] [id number] PCP - General 06/05/14 02/13/17 Unknown, Provider, [address] [place] [address] PCP - General 02/14/17 03/22/17 Venice Davenport MD [address] [place] [address] 02/14/17 documented as of this encounter
--- OUTSIDE RECORDS SUMMARY | 2023-12-22 01:12 | XMS_ITS | Encounter Summary ---
Author Organization [facility] Address [address] [place] [address] Care Team Providers Care Collar Shaper Operator Name Role Phone Venice Davenport MD Unavailable [phone] Get Franz MD Primary Care Provider Unav ailable Reason for Visit * (Routine/Next Available) - Receiving Office to Obtain Authorization Specialty Diagnoses / Procedures Referred By Karthikeyan palma Referred To Contact Procedures CT OUTSIDE IMAGES MSK Imaging, External Referral ID Status Reason Start Date Expiration Date Visits Requested Visits Authorized [id number] Receiving Office to Obtain Authorization 07/05/2021 1 1 Encounter Details Date Type Department Care Team (Latest Contact Info) Description 02/16/2021 Hospital Encounter [facility] Secondary Reads [place] Discharge Disposition: Home or Self Care Social History Tobacco Use Types Packs/Day Years Used Date Smoking Tobacco: Never Assessed Interpersonal Safety Answer Date Record ed Physically Hurt Never 10/27/2019 Verbally Threaten Not on file 10/27/2019 Sex and Gender Information Value Date Recorded Sex Assigned at Not on file Gender Identity Female 05/11/2021 12:29 EST Sexual Orientation Not on file documented as of this encounter Discharge Disposition Disposition Code Departure Means Destination Home or Self Care documented in this encounter Plan of Treatment Not on file documented as of this encounter Procedures Procedure Name Priority Date/Time Associated Diagnosis Comments CT OUTSIDE IMAGES MSK Routine 07/05/2021 11:24 EDT documented in this encounter Results * CT OUTSIDE IMAGES MSK (07/05/2021 11:24 EDT) Narrative 07/05/2021 11:24 EDT This is a non-reportable exam. External Imaging IMG OTHER IMAGING OR DERABLES documented in this encounter Visit Diagnoses Not on filedocumented in this encounter Care Teams Collar Shaper Operator Relationship Specialty Start Date End Date Get Franz MD [address] [place] [address] PCP - General 03/23/17 Venice Davenport MD [address] [place] [address] 02/14/17 documented as of this encounter
--- OUTSIDE RECORDS SUMMARY | 2023-12-22 01:12 | XMS_ITS | Clinical Summary ---
Author Organization [facility] Address [address] [place] [address] Care Team Providers Care Middle School Band Teacher Name Role Phone Venice Davenport MD Unavailable [phone] Get Franz MD Primary Care Provider Unav ailable Allergies Active Allergy Reactions Criticality Noted Date Comments Bee Venom Protein (Honey Bee) High 2021 Morphine High 05/10/2021 Penicillins High 05/10/2021 Renetta High 05/10/2021 Medications Medication Sig Dispensed Refills Start Date End Date Status gabapentin (NEURONTIN) 300 mg capsule Take 300 mg by mouth 2 times daily. Active cefuroxime (CEFTIN) 500 mg tablet Take 500 mg by mouth 2 times daily. Active apixaban (ELIQUIS) 5 mg tablet Take 5 mg by mouth 2 times daily. Active UNABLE TO FIND CDB OIL BID Active Cholecalciferol, Vitamin D3, (VITAMIN D3) 10 mcg (400 unit) tablet Take 1,000 Units by mouth daily. 5000 Units Daily Active cyanocobalamin (VITAMIN B-12) 500 mcg tablet Take 500 mcg by mouth daily. Active vitamin E 400 unit capsule Take 400 Units by mouth daily. Active Magnesium 200 mg tablet Take 1,000 mg by mouth daily. Active Gyzpk-3-SCK-EPA-Fish Oil (FISH OIL) 1,200 (144-216) mg capsule Take by mouth. Active ascorbic acid, vitamin C, (VITAMIN C) 500 mg tablet Take 1,000 mg by mouth daily. 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, left (HCC-CMS) 05/10/2021 Anticoagulation adequate 05/10/2021 Immunizations Name Administration Dates Next Due Covid-19 mRNA Vaccine (MODER NA COVID-19) PF 0.5 ml IM (12 yrs+) 02/27/2021 Influenza Vaccine High Dose (FLUZONE HIGH DOSE) PF 0.7 ml IM (65 yrs+) 03/16/2021 Surgical History Surgery Date Site/Laterality Comments CHOLECYSTECTOMY TONSILLECTOMY Medical History Medical History Date Comments Lyme disease Hypercholesterolemia Obesity Family History Medical History Relation Comments Stroke Mother Relation Status Comments Mother Social History Tobacco Use Types Packs/Day Years Used Date Smoking Tobacco: Never Smokeless Tobacco: Never Alcohol Use Standard Drinks/Week Comments Never 0 (1 standard drink = 0.6 oz pur e alcohol) Interpersonal Safety Answer Date Record ed Physically Hurt Never 10/27/2019 Verbally Threaten Not on file 10/27/2019 Sex and Gender Information Value Date Recorded Sex Assigned at Not on file Gender Identity Female 05/11/2021 12:29 EST Sexual Orientation Not on file Obstetrics History Plan of Treatment Health Maintenance Due Date Last Done Comments Hepatitis C Screen 1955 RSV Immunization ( o r 60+ Years) (1 - 1-dose 60+ series) 2015 Fall Risk Screening 09/19/2020 COVID-19 Vaccine ( season) 11/25/202206/2020 Care Teams Middle School Band Teacher Relationship Specialty Start Date End Date Get Franz MD [address] [place] [phone] PCP - General 03/23/17 Venice Davenport MD [address] [place] [address] 02/14/17
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
--- OUTSIDE RECORDS SUMMARY | 2023-12-22 01:12 | XMS_ITS | Encounter Summary ---
Author Organization [facility] Address [address] [place] [address] Care Team Providers Care Piano Machine Operator Name Role Phone Unavailable Primary Care Provider Unavailabl e Encounter Details Date Type Department Care Team (Late st Contact Info) Description 01/31/2000 Results Only [facility] [address] [place] [address] Lita Irvin MD Social History Tobacco Use Types Packs/Day Years Used Date Smoking Tobacco: Never Assessed Sex and Gender Information Value Date Recorded Sex Assigned at Not on file Gender Identity Female 05/11/2021 12:29 EST Sexual Orientation Not on file documented as of this encounter Plan of Treatment Not on file documented as of this encounter Procedures Procedure Name Priority Date/Time Associated Diagnosis Comments CYTOPATHOLOGY Routine 01/31/2000 0:00 EST documented in this encounter Results * CYTOPATHOLOGY (01/31/2000 0:00 EST) Pathology Report: CYTOPATHOLOGY REPORT Reports generated via electronic interface contain original data; however they are lacking the format of the original report. Caution should be taken when reading/interpreti ng unformatted reports. Name: ? CAROLYNN WISE ? Accession #: ? [id number] : ? 1955 (Age: 44) ??F ?Collect Date: ? 01/31/2000 Location: ? [facility] ? Receive Date: ? 02/03/2000 Provider: ?LITA IRVIN MD Copy to: ? Specimen/Source: ?Conventional Pap Test, Cervix/Endocervix Last Menstrual Period: ? 01/22/00 ? SPECIMEN ADEQUACY ? Satisfactory for evaluation. GENERAL CATEGORIZATION ? Benign Cellular Changes DESCRIPTIVE DIAGNOSIS ? Reactive cellular changes associated with inflammation present (includes repair). ? Document reviewed and electronically signed by: ? MAK NAQVI MD [facility] ? Report Date: ??02/16/2000 14:19 End of Report HARJIT LAIRD 01/31/2000 02/03/2000 Lita Irvin MD PATHOLOGY ORDERABLES HARJIT LAIRD [address] [place] [address] documented in this encounter Visit Diagnoses Not on filedocumented in this encounter
--- OUTSIDE RECORDS SUMMARY | 2023-12-22 01:12 | XMS_ITS | Encounter Summary ---
Author Organization [facility] Address [address] [place] [address] Care Team Providers Care Telecommunications Field Engineer Name Role Phone Venice Davenport MD Primary Care Provider [phone] Unknown, Provider Primary Care Provider [phone] Venice Davenport MD Unavailable [phone] Get Franz MD Primary Care Provider Unav ailable Encounter Details Date Type Department Care Team (Late st Contact Info) Description 05/27/2016 Historical Results Only [facility] [address] [place] [address] Unknown, Provider, Social History Tobacco Use Types Packs/Day Years Used Date Smoking Tobacco: Never Assessed Sex and Gender Information Value Date Recorded Sex Assigned at Not on file Gender Identity Female 05/11/2021 12:29 EST Sexual Orientation Not on file documented as of this encounter Plan of Treatment Not on file documented as of this encounter Procedures Procedure Name Priority Date/Time Associated Diagnosis Comments COMPLETE BLOOD COUNT AND DIFFERENTIAL Routine 05/27/2016 14:00 EST COMPREHENSIVE METABOLIC PANEL (CMP) Routine 05/27/2016 14:00 EST documented in this encounter Results * COMPREHENSIVE METABOLIC PANEL (CMP) (05/27/2016 14:00 EST) Sodium 142 136 - 145 05/27/2016 19:59 EST [facility] Potassium 4.9 3.5 - 5.1 05/27/2016 19:59 [facility] Chloride 105 96 - 107 05/27/2016 19:59 [facility] CO2 Total 29.5 21 - 32 05/27/2016 19:59 [facility] Anion Gap 7.5 05/27/2016 19:59 [facility] BUN 9 7 - 25 05/27/2016 19:59 [facility] Creatinine 0.74 0.55 - 1.02 05/27/2016 19:59 [facility] Estimated GFR >60 >60 05/27/2016 19:59 [facility] Comment: EGFR UNITS: mL/min/1.73 m 2 CKD-EPI Equation used to calculate. Glucose 92 FASTIN -99 05/27/2016 19:59 [facility] Calcium 8.9 8.5 - 10.5 05/27/2016 19:59 [facility] CALCIUM,CORRECTE D - PMC 8.9 8.5 - 10.5 05/27/2016 19:59 [facility] BILIRUBIN - PMC 0.50 0.00 - 1.00 05/27/2016 19:59 [facility] AST 15 15 - 37 05/27/2016 19:59 [facility] ALT 27 12 - 78 05/27/2016 19:59 [facility] Alkaline Phosphatase 91 46 - 116 05/27/2016 19:59 [facility] Total Protein 7.1 6.4 - 8.2 05/27/2016 19:59 [facility] Albumin 4.0 3.4 - 5.0 05/27/2016 19:59 [facility] GLOBULIN - PMC 3.1 05/27/2016 19:59 [facility] ALBUMIN/GLOBULIN RATIO - PMC 1.2 05/27/2016 19:59 [facility] 05/27/2016 14:0 0 EST 05/27/2016 18:56 EST Provider Unknown CHEMISTRY & BLOOD GA S ORDERABLES [facility] * (ABNORMAL) COMPLETE BLOOD COUNT AND DIFFERENTIAL (05/27/2016 14:00 EST) WBC 5.6 4.0 - 10.5 05/27/2016 19:13 [facility] RBC 4.46 4.20 - 5.40 05/27/2016 19:13 [facility] Hemoglobin 14.5 12.5 - 16.0 05/27/2016 19:13 [facility] HCT 42.5 37.0 - 47.0 05/27/2016 19:13 [facility] MCV 95.3 78 - 100 05/27/2016 19:13 [facility] MCH 32.5(H) 27 - 31 05/27/2016 19:13 [facility] MCHC 34.1 32 - 36 05/27/2016 19:13 [facility] RDW-CV - PMC 12.4 11.5 - 14.0 05/27/2016 19:13 [facility] PLATELET COUNT - PMC 329 150 - 450 05/27/2016 19:13 [facility] NEUTROPHILS % (AUTO) - PMC 57.8 42.0 - 75.0 05/27/2016 19:13 [facility] LYMPHOCYTES % (AUTO) - PMC 33.8 16.0 - 52.0 05/27/2016 19:13 [facility] MONOCYTES % (AUTO) - PMC 5.4 1.0 - 11.0 05/27/2016 19:13 [facility] EOSINOPHILS % (AUTO) - PMC 2.3 0.0 - 7.0 05/27/2016 19:13 [facility] BASOPHILS % (AUTO) - PMC 0.7 0.0 - 4.0 05/27/2016 19:13 [facility] NEUTROPHILS # (AUTO) - PMC 3.2 1.5 - 6.6 05/27/2016 19:13 [facility] LYMPHOCYTES # (AUTO) - PMC 1.9 1.0 - 3.5 05/27/2016 19:13 [facility] MONOCYTES # (AUTO) - PMC 0.3 <1.0 05/27/2016 19:13 [facility] EOSINOPHILS # (AUTO) - PMC 0.1 <0.7 05/27/2016 19:13 EST [facility] BASOPHILS # (AUTO) - PMC 0.0 <0.1 05/27/2016 19:13 [facility] 05/27/2016 14:0 0 EST 05/27/2016 18:56 EST Provider Unknown MD PACKAGES & DNA PROBE ORDERABLES [facility] documented in this encounter Visit Diagnoses Not on filedocumented in this encounter Care Teams Telecommunications Field Engineer Relationship Specialty Start Date End Date Venice Davenport MD [address] [place] [phone] PCP - General 06/05/14 02/13/17 Unknown, Provider, [address] [place] [address] PCP - General 02/14/17 03/22/17 Get Franz MD [address] [place] [address] PCP - General 03/23/17 Venice Davenport MD [address] [place] [address] 02/14/17 documented as of this encounter
--- OUTSIDE RECORDS SUMMARY | 2023-12-22 01:12 | XMS_ITS | Continuity of Care Document ---
Author Organization [facility] Address [address] [place] [address] Care Team Providers Care Strawberry Grower Name Role Phone Wang Abdalla DO Primary Care Physician Encounter [facility] [id number] Date(s): 11/17/22 - 11/17/22 [facility] [address] [place] [address]- [place] Discharge Disposition: Home Allergies, Adverse Reactions, Alerts Substance Reaction Severity Status morphine Anaphylaxis Severe Active penicillin V potassium Anaphylaxis Severe Activ e Bee Stings 1 Unknown Severe Active Spice 2 Unknown Unknown Active 1Outside Source Comment: ECW did not list reaction%2Fseverity 2Outside Source Comment: QUINN. ECW did not specify reaction%2Fseverity Assessment and Plan Future Appointments Future Scheduled Tests Radiology* CT Chest w/o Contrast 11/29/22 Immunizations Given and Recorded Vaccine Date Status Refusal Reason SARS-CoV-2 (COVID-19) mRNA-1273 vaccine 1 07/06/21 Recorded influenza, unspecified formulation 2 03/15/21 Gumaro rded 1Result Comment: Unit: Unknown 2Result Comment: Social Service Director: [employer] Medications AAA - Misc Prescription 8 EA, TEST DIRECTED TODAY, 0 Refill(s) Start Date: 06/23/22 Status: Ordered cefuroxime 500 mg oral tablet 1 tab, Oral, every 12 hr, # 60 tab, 5 Refill(s), Pharmacy: [facility] #[id number] Start Date: 10/07/22 Status: Ordered diclofenac 3% topical gel 100 g, APPLY TOPICALLY TO THE AFFECTED AREA TWICE DAILY., 0 Refill(s) Start Date: 06/23/22 Status: Ordered Eliquis 5 mg oral tablet 5 mg = 1 tab, Oral, BID, # 180 tab, 4 Refill(s), Pharmacy: [facility] #[id number] Start Date: 05/13/22 Stop Date: 08/06/23 Status: Ordered Fish Oil 1000 mg oral capsule 1,000 mg = 1 cap, Oral, Daily, # 90 cap, 0 Refill(s) Start Date: 05/13/22 Stop Date: 09/22/22 Status: Ordered gabapentin 300 mg oral capsule See Instructions, 1 capsule in the AM, 1 in the PM, and 2 capsules at bedtime, # 360 cap, 0 Refill(s), Pharmacy: [facility] #[id number] Start Date: 09/08/22 Status: Ordered antwan oral [...] Role: Primary Care Physician Address: Address: [address] [place] [phone] [place] Care Team Related Persons Name: RUTHIE PAZ Address: Home
--- OUTSIDE RECORDS SUMMARY | 2023-12-22 01:12 | XMS_ITS | Encounter Summary ---
Author Organization [facility] Address [address] [place] [address] Care Team Providers Care Manager Orange Name Role Phone Venice Davenport MD Unavailable [phone] Get Franz MD Primary Care Provider Unav ailable Reason for Visit * Reason Comments Telemedicine Video Visit Encounter Details Date Type Department Care Team (Late st Contact Info) Description 05/10/2021 16:[address] [facility] - [facility] Adult Hematology & Oncology [facility] [place] [address] Genesis Joyner MBBS [address] [facility], [facility] [address] [place] [address] Acute venous embolism and thrombosis of deep vessels of proximal lower extremity, left (HCC-CMS) (HCC) (Primary Dx); Anticoagulation adequate Social History Tobacco Use Types Packs/Day Years Used Date Smoking Tobacco: Never Alcohol Use Standard Drinks/Week Comments Never 0 (1 standard drink = 0.6 oz pur e alcohol) Interpersonal Safety Answer Date Record ed Physically Hurt Never 10/27/2019 Verbally Threaten Not on file 10/27/2019 Sex and Gender Information Value Date Recorded Sex Assigned at Not on file Gender Identity Female 05/11/2021 12:29 EST Sexual Orientation Not on file documented as of this encounter Progress Notes * Genesis Joyner MBBS - 05/10/2021 1600 EST HEMATOLOGY CONSULT NOTE [facility] Video Visit I am conducting today's visit by Zoom Video due to the COVID-19 pandemic, and by the recommendations from the [facility] to minimize patient exposure to our medical center. All patients who have routine follow up visits or are not on active cancer treatments will have visits postponed for an appropriate interval (as decided by the physician) or these visits may be offered by telemedicine or phone consultation. This consultation has been reviewed by appropriate clinicalstaff and has been deemed appropriate for a video consultation. The patient consents to a video visit, is at home/work, and I, their MD, am in a private area. The location of the patient: Home The location of the provider: Home Office Verbal consent: The concept of ???Telemedicine?? has been described to the patient.? Patient has been informed of the anticipated benefits and possible risks.? Patient understands the information provided regardingtelemedicine, has had the opportunity to ask questions about this information, and all questions have been answered to patient's satisfaction. Patient consents for the use of telemedicine in his/her medical care and authorizes the transmission of any relevant medical information to providers and their staff involved in patient's medical or mental health care. PATIENT: Carolynn Avilez CHIEF COMPLAINT Telemedicine Video Visit HISTORY OF PRESENT ILLNESS Patient has been in [place] for the last 5 years. She traveled by car from [place] to [place] over 12days (duration of travel is more than 70 hours). Subsequently, she developed discomfort and swelling in left lower extremity associated with discoloration. 02/13/2021: Patient presented to emergency department in [place]. Bedside ultrasound did not showDVT. Due to high clinical suspicion, she was started on Eliquis and was advised to return to ED 2 days later when the electro mechanical technologist would be available to do formal ultrasound. 02/16/2021: Patient represented to ED. Vascular duplex did not show DVT. CT venogram: Extensive DVTinvolving left common femoral, external iliac vein, proximal portion of left internal iliac vein, diffuse extensive swelling and subcutaneous edema in left thigh region. Patient was transferred to [facility]. 02/17/2021-02/19/2021: Patient was admitted at [facility]. Heparin drip was continued. Thrombectomy was offered by vascular surgery for 02/19/2021. Symptoms improved with Tate wrap and elevation of left lower extremity. As her symptoms improved, she was started on anticoagulation with Eliquis. Patient is being seen in hematology clinic today to discuss subsequent steps. Patient mentions thatpain and swelling in left lower extremity are better. She denies previous history of VTE. She mentions that her sister had blood clot after hip surgery. Most of women in her family from stroke or heart attack. Her first maternal cousin of VTE at the age of 18. 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 PROBLEM LIST Patient Active Problem List Diagnosis ??? Acute venous embolism and thrombosis of deep vessels of proximal lower extremity, left (HCC-CMS) (HCC) ??? Anticoagulation adequate PAST HISTORY Past Medical History: Diagnosis Date ??? Hypercholesterolemia ??? Lyme disease ??? Obesity Past Surgical History: Procedure Laterality Date ??? CHOLECYSTECTOMY ??? TONSILLECTOMY History reviewed. No pertinent family history. Social History Tobacco Use ??? Smoking status: Never Smoker Vaping Use ??? Vaping Use: Never used Substance Use Topics ??? Alcohol use: Never ??? Drug use: Not on file Social History Social History Narrative Lives in [place], [place]. 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 MEDICATIONS Current Outpatient Medications Medication Sig Dispense Refill Last Dose ??? apixaban (ELIQUIS) 5 mg tablet Take 5 mg by mouth 2 times daily. Taking ??? ascorbic acid, vitamin C, (VITAMIN C) 500 mg tablet Take 1,000 mg by mouth daily. Taking ??? cefuroxime (CEFTIN) 500 mg tablet Take 500 mg by mouth 2 times daily. Taking ??? Cholecalciferol, Vitamin D3, (VITAMIN D3) 10 mcg (400 unit) tablet Take 1,000 Units by mouth daily. 5000 Units Daily Taking ??? cyanocobalamin (VITAMIN B-12) 500 mcg tablet Take 500 mcg by mouth daily. Taking ??? gabapentin (NEURONTIN) 300 mg capsule Take 300 mg by mouth 2 times daily. Taking ??? Magnesium 200 mg tablet Take 1,000 mg by mouth daily. Taking ??? Wfdnf-9-PQJ-EPA-Fish Oil (FISH OIL) 1,200 (144-216) mg capsule Take by mouth. Taking ??? UNABLE TO FIND CDB OIL BID Taking ??? vitamin E 400 unit capsule Take 400 Units by mouth daily. Taking No current facility-administered medications for this visit. ALLERGIES Allergies Allergen Reactions ??? Bee Venom Protein (Honey Bee) ??? Morphine ??? Penicillins ??? Renetta REVIEW OF SYSTEMS Constitutional: Negative for activity change, appetite change, fatigue and fever. HENT: Negative. Eyes: Negative. Respiratory: Negative. Negative for shortness of breath. Cardiovascular: Negative. Negative for chest pain and leg swelling. Gastrointestinal: Negative. Negative for abdominal distention. Endocrine: Negative. Genitourinary: Negative for difficulty urinating. Musculoskeletal: Negative. Improved pain and swelling in left lower extremity Skin: Negative. Negative for color change. Allergic/Immunologic: Negative for food allergies. Neurological: Negative. Hematological: Negative. Psychiatric/Behavioral: Negative. Negative for agitation. VITALS No data found. There were no vitals filed for this visit. PHYSICAL EXAM General: Comfortable, cooperative and in no apparent distress NEURO: Alert and oriented x 3 Pertinent exam findings patient can observe: None DIAGNOSIS The primary encounter diagnosis was Acute venous embolism and thrombosis of deep vessels of proximal lower extremity, left (HCC-CMS) ([facility]). A diagnosis of Anticoagulation adequate was also pertinent to this visit. ASSESSMENT 65-year-old female with past medical history significant for chronic Lyme's disease, neuropathy whowas recently diagnosed with extensive DVT in left lower extremity, currently on anticoagulation with Eliquis. Nature of DVT: Provoked in nature from travel. Duration of anticoagulation: As DVT is provoked in nature, I recommend 3 months of therapeutic anticoagulation with Eliquis. However, given extensive nature of DVT, I would like to reevaluate her in 4 weeks in person (patient would finished 3.5 months of therapeutic anticoagulation by then). She may benefit from longer duration of anticoagulation. Discussion on hypercoagulable work-up: As DVT is provoked in nature, I do not recommend any hypercoagulable work-up for this patient. Discussion on risk factors for recurrent VTE: I discussed with the patient in that obesity, travel,persistent immobilization are risk factors for recurrent VTE. I advised her to take frequent breakswith future travel and keep herself well-hydrated. Discussion on travel VTE prophylaxis: I do think patient would benefit from prophylactic Eliquis (2.5 mg BID) with future travel. Patient can start Eliquis 3 days prior to travel, continue Eliquis during the duration of travel and can stop Eliquis within 3 days after travel. Discussion on repeat imaging: I mentioned to the patient in that I would not be repeating CT venogram to assess response if her symptoms including pain and swelling in left lower extremity are getting better. Patient mentions that she is due to see a vascular surgeon in upcoming weeks and I will defer this question to vascular surgeon. PLAN -Patient has had extensive travel related, provoked DVT in left lower extremity. -Recommend therapeutic anticoagulation with Eliquis at least for 3 to 6 months. -No need for hypercoagulable work-up. -Discussed risk factors for recurrent VTE. -Discussed the role of prophylactic Eliquis with future travel. Follow-up: 4 weeks, in person visit Patient initiated video contact with the office Yes Is an established patient (parent, guardian) No E/M provided within previous 7 days for same Assessment No Anticipate E/M service within 24hrs or next available urgent appointment No I spent a total of 45 minutes on the date of this encounter meeting with the patient and reviewing documentation/coordinating care as described in the above note. No procedures were performed at the time of the visit. The following individuals and their role did participate in today's encounter visit: Provider: IRA Andino Patient Orders placed in this visit: No orders of the defined types were placed in this encounter. Requested Prescriptions No prescriptions requested or ordered in this encounter Genesis Joyner MD Clinical Practice Physician Hematology/ Medical Oncology [facility] Ph no: [phone] CC:Primary Care Provider: Get Franz [address] [place] [id number] Referring Provider: Wang Garsia, DO Family medicine [facility] primary care [facility] [place], [place] * Evie Bello RN - 05/10/2021 1600 EST Patient rooming was completed remotely by EVIE BELLO RN in compliance with efforts to reduce exposure to COVID19. Patient pharmacy verified: Yes Patient insurance verified: Yes Verbal consent given by patient to continue with telemedicine visit: Yes 05/10/21 15:14 documented in this encounter Plan of Treatment Not on file documented as of this encounter Visit Diagnoses Diagnosis Acute venous embolism and thrombosis of deep vessels of proximal lower extremity, left (HCC-CMS)- Primary Anticoagulation adequate Long-term (current) use of anticoagulants documented in this encounter Historical Medications * This list may reflect changes made after this encounter. Medication Sig Dispensed Refills Start Date End Date ascorbic acid, vitamin C, (VITAMIN C) 500 mg tablet Take 1,000 mg by mouth daily. Hnxyu-0-ZSL-EPA-Fish Oil (FISH OIL) 1,200 (144-216) mg capsule Take by mouth. Magnesium 200 mg tablet Take 1,000 mg by mouth daily. vitamin E 400 unit capsule Take 400 Units by mouth daily. cyanocobalamin (VITAMIN B-12) 500 mcg tablet Take 500 mcg by mouth daily. Cholecalciferol, Vitamin D3, (VITAMIN D3) 10 mcg (400 unit) tablet Take 1,000 Units by mouth daily. 5000 Units Daily UNABLE TO FIND CDB OIL BID apixaban (ELIQUIS) 5 mg tablet Take 5 mg by mouth 2 times daily. cefuroxime (CEFTIN) 500 mg tablet Take 500 mg by mouth 2 times daily. gabapentin (NEURONTIN) 300 mg capsule Take 300 mg by mouth 2 times daily. added in this encounter Care Teams Manager Orange Relationship Specialty Start Date End Date Get Franz MD [address] [place] [id number] PCP - General 03/23/17 Venice Davenport MD [address] [place] [id number] 02/14/17 documented as of this encounter
--- OUTSIDE RECORDS SUMMARY | 2023-12-22 01:12 | XMS_ITS | Encounter Summary ---
Author Organization [facility] Address [address] [place] [address] Care Team Providers Care See Supervisor Name Role Phone Venice Davenport MD Unavailable [phone] Get Franz MD Primary Care Provider Unav ailable Reason for Visit * Reason Onset Date Comments Other 08/15/2017 Encounter Details Date Type Department Care Team (Late st Contact Info) Description 08/15/2017 Telephone [facility] Gastroenterology - [facility] [address] [place], [place] [id number] Alexander Cordero MD [address] [facility] [place] [address] Other Social History Tobacco Use Types Packs/Day Years Used Date Smoking Tobacco: Never Assessed Sex and Gender Information Value Date Recorded Sex Assigned at Not on file Gender Identity Female 05/11/2021 12:29 EST Sexual Orientation Not on file documented as of this encounter Miscellaneous Notes * Telephone Encounter - Vicki Granda RN - 08/17/2017 1037 EDT Discussed ERCP procedure in detail with patient. She has a common bile duct stone. Patient is requesting either a phone call or office visit from Dr Cordero prior to the procedure. She states that her previous gallbladder surgery did not go well so she is concerned about having an invasive procedure without having contact with the MD first either by phone or in person. Will forward to Dr Cordero. documented in this encounter Plan of Treatment Not on file documented as of this encounter Visit Diagnoses Not on filedocumented in this encounter Care Teams See Supervisor Relationship Specialty Start Date End Date Get Franz MD [address] [place] [address] PCP - General 03/23/17 Venice Davenport MD [address] [place] [address] 02/14/17 documented as of this encounter
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
--- OUTSIDE RECORDS SUMMARY | 2023-12-22 01:12 | XMS_ITS | Continuity of Care Document ---
Author Organization [facility] Address [address] [place] [address] Care Team Providers Care Program Associate Name Role Phone Wang Abdalla DO Primary Care Physician [phone] Encounter [facility] FIN NBR [id number] Date(s): 07/07/22 - 07/07/22 [facility] [address] [place] [address]- [place] Encounter Diagnosis Recurrent productive cough(Discharge Diagnosis) - 07/07/22 Discharge Disposition: Home or Self Care Attending Physician: Wang Abdalla DO Allergies, Adverse Reactions, [...] Incubated) LC 07/07/22 * Sputum Culture 07/07/22 Immunizations Given and Recorded Vaccine Date Status Refusal Reason SARS-CoV-2 (COVID-19) mRNA-1273 vaccine 1 07/06/21 Recorded influenza, unspecified formulation 2 03/15/21 Gumaro rded 1Result Comment: Unit: Unknown 2Result 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: [employer] Medications AAA - Misc Prescription 8 EA, TEST DIRECTED TODAY, 0 Refill(s) Start Date: 06/23/22 Status: Ordered cefuroxime 500 mg oral tablet 500 mg = 1 tab, Oral, every 12 hr, # 60 tab, 1 Refill(s), Pharmacy: [facility] #[id number] Start Date: 05/13/22 Stop Date: 07/12/22 Status: Ordered diclofenac 3% topical gel 100 g, APPLY TOPICALLY TO THE AFFECTED AREA TWICE DAILY., 0 Refill(s) Start Date: 06/23/22 Status: Ordered Eliquis 5 mg oral tablet 5 mg = 1 tab, Oral, BID, # 180 tab, 4 Refill(s), Pharmacy: [facility] #[id number] Start Date: 05/13/22 Stop Date: 08/06/23 Status: Ordered Fish Oil 1000 mg oral capsule 1,000 mg = 1 cap, Oral, Daily, # 90 cap, 0 Refill(s) Start Date: 05/13/22 Stop Date: 09/22/22 Status: Ordered gabapentin 300 mg oral capsule See Instructions, 1 capsule in the AM, 1 in the PM, and 2 capsules at bedtime, # 360 cap, 0 Refill(s), Pharmacy: [facility] #[id number] Start Date: 06/13/22 Status: Ordered antwan oral [...] Member Role: Primary Care Physician Address: Address: [address] [place] [phone] [place] Care Team Related Persons Name: RUTHIE PAZ
--- OUTSIDE RECORDS SUMMARY | 2023-12-22 01:12 | XMS_ITS | Encounter Summary ---
Author Organization [facility] [place] [address] Care Team Providers Care Surface Supervisor Name Role Phone Unavailable Primary Care Provider Unavailabl e Encounter Details Date Type Department Care Team (Late st Contact Info) Description 02/16/2021 1:55 PM EST Ancillary Procedure Radiology Library at [facility] [place] [id number] Babatunde Garcia MD [facility] [place] [address] Social History Tobacco Use Types Packs/Day Years Used Date Smoking Tobacco: Never Assessed Sex and Gender Information Value Date Recorded Sex Assigned at Not on file Gender Identity Not on file Sexual Orientation Not on file documented as of this encounter Plan of Treatment Not on file documented as of this encounter Procedures Procedure Name Priority Date/Time Associated Diagnosis Comments FILM LIBRARY STORAGE ONLY CT LOWER EXTREMITY Routine 02/16/2021 1:50 PM EST documented in this encounter Results * Film Library- Storage Only CT Lower Extremity (02/16/2021 1:50 PM EST) Narrative RAD - 02/16/2021 1:50 PM EST This exam is auto-finalizing. It's purpose is for storage only. Babatunde Garcia MD IMG FILM LIBRARY ORD ERABLES [facility] [place] documented in this encounter Visit Diagnoses Not on filedocumented in this encounter
--- OUTSIDE RECORDS SUMMARY | 2023-12-22 01:12 | XMS_ITS | Encounter Summary ---
Author Organization [facility] Address [address] [place] [address] Care Team Providers Care Water Registrar Name Role Phone Unavailable Primary Care Provider Unavailabl e Encounter Details Date Type Department Care Team (Late st Contact Info) Description 11/18/2004 Results Only [facility] [address] [place] [address] Lita Irvin MD Social History Tobacco Use [...] Priority Date/Time Associated Diagnosis Comments CYTOPATHOLOGY Routine 11/18/2004 0:00 EDT documented in this encounter Results * CYTOPATHOLOGY (11/18/2004 0:00 EDT) Pathology Report: CYTOPATHOLOGY REPORT Reports generated via electronic interface contain original data; however they are lacking the format of the original report. Caution should be taken when reading/interpreti ng unformatted reports. Name: ? CAROLYNN WISE ? Accession #: ? [id number] : ? 1955 (Age: 49) ??F ?Collect Date: ? 11/18/2004 Location: ? [facility] ? Receive Date: ? 11/22/2004 Provider: ?LITA IRVIN MD Copy to: ? Specimen/Source: ?Conventional Pap Test, Cervix/Endocervix Last Menstrual Period: ? 09/17/04 ? SPECIMEN ADEQUACY ? Satisfactory for Evaluation - transformation zone component present - scant squamous epithelial component GENERAL CATEGORIZATION ? Negative for Intraepithelial Lesion or Malignancy ? Document reviewed and electronically signed by: ? Radha Carbajal, GEORGE(ASCP)(IAC) ? Report Date: ??11/23/2004 13:28 End of Report [facility] 11/18/2004 11/22/2004 Lita Irvin MD PATHOLOGY ORDERABLES [facility] [address] [place] [address] documented in this encounter Visit Diagnoses Not on filedocumented in this encounter
--- OUTSIDE RECORDS SUMMARY | 2023-12-22 01:12 | XMS_ITS | Encounter Summary ---
Author Organization [facility] Address [address] [place] [address] Care Team Providers Care Integration Developer Name Role Phone Unknown, Provider Primary Care Provider [phone] Venice Davenport MD Unavailable [phone] Encounter Details Date Type Department Care Team (Late st Contact Info) Description 03/17/2017 Results Only [facility] [phone] Jerrica Vásquez MD [address] [place] [address] Social History Tobacco Use Types Packs/Day Years [...] Date/Time Associated Diagnosis Comments SURGICAL PATHOLOGY Routine 03/17/2017 10 :04 EST documented in this encounter Results * SURGICAL PATHOLOGY (03/17/2017 10:04 EST) Pathology Report: SURGICAL PATHOLOGY REPORT Reports generated via electronic interface contain original data; however they are lacking the format of the original report. Caution should be taken when reading/interpret ing unformatted reports. Name: ? CAROLYNN CODY ? Accession #: ? [id number] ? : ? 1955 (Age: 61) ??F ? Collect Date: ? 03/17/2017 ? Location: ? [facility] ? Receive Date: ? 03/21/2017 ? Provider: JERRICA VÁSQUEZ MD Copy to: JUAN GARCIA MD ? Final Pathologic Diagnosis: A. ENDOCERVIX, CURETTAGE: - ??Fragments of benign endocervix. See comment. B. ECTOCERVIX, 6:30, BIOPSY: - ??Benign squamous mucosa with acute and chronic cervicitis and reactive changes. See comment. C. ECTOCERVIX, 6 O'CLOCK, BIOPSY: - ??Minute fragments of benign squamous mucosa with chronic cervicitis and reactive changes. See comment. D. ECTOCERVIX AT 3 O'CLOCK, BIOPSY: - ??Benign squamous mucosa with chronic cervicitis. See comment. Comment: Deeper levels of specimen A-D were examined. Dr. Narayan 03/24/2017 1:54 PM Document reviewed and electronically signed by: IRMA NARAYAN MD Report ??Date: 03/24/2017 13:55 By the signature above, the attending physician certifies that he/she has personally conducted a gross and/or microscopic examination of the described specimens and rendered or confirmed the above diagnosis. Specimen(s) Received: A. ??ECC B. ??Ectocervical bx 6:30 pos C. ??Ectocervical bx 6 o'clock pos D. ??Ectocervical bx 3 o'clock pos Clinical History: ASC-H Pap result Gross Description: A. ?Received in formalin labelled with proper patient identification (initials K, B) and ectocervical ECC is an aggregate of cloudy mucus (1.5 x 1.5 x 0.5 cm). The specimen is submitted entirely in A1. B. ?Received in formalin labelled with proper patient identification (initials K, B) and ectocervical 6:30 is a single fragment of major-pink tissue (0.3 x 0.2 x 0.2 cm). The specimen is submitted entirely in B1. C. ?Received in formalin labelled with proper patient identification (initials K, B) and ectocervical 6 o'clock is a scant amount of major-brown wispy tissue (0.3 x 0.2 x less than 0.1 cm). The specimen is filtered and submitted in C1. D. ?Received in formalin labelled with proper patient identification (initials K, B) and ectocervical 3 o'clock is a single fragment of major-pink tissue (0.3 x 0.3 x 0.2 cm). The specimen is submitted entirely in D1. TABITHA Richardson (ASCP) 03/21/2017 11:29 AM End of Report [facility] 03/17/2017 10:0 4 EST 03/21/2017 10:04 EST Jerrica Vásquez MD PATHOLOGY ORDERABLES [facility] [address] [place] [address] documented in this encounter Visit Diagnoses Not on filedocumented in this encounter Care Teams Integration Developer Relationship Specialty Start Date End Date Unknown, Provider, PCP - General 02/14/17 03/22/17 Venice Davenport MD [address] [place] [address] 02/14/17 documented as of this encounter
--- OUTSIDE RECORDS SUMMARY | 2023-12-22 01:12 | XMS_ITS | Encounter Summary ---
Author Organization [facility] Address [address] [place] [address] Care Team Providers Care Shirt Cleaner Name Role Phone Venice Davenport MD Primary Care Provider [phone] Encounter Details Date Type Department Care Team (Latest Contact Info) Description 02/13/2017 14:22 EST - 02/13/2017 23:59 EST Hospital Encounter [address] [address] Unknown, Provider, Discharge Disposition: Home or Self Care Social History Tobacco Use Types Packs/Day Years Used Date Smoking Tobacco: Never Assessed Sex and Gender Information Value Date Recorded Sex Assigned at Not on file Gender Identity Female 05/11/2021 12:29 EST Sexual Orientation Not on file documented as of this encounter Discharge Disposition Disposition Code Departure Means Destination Home or Self Senior Living documented in this encounter Plan of Treatment Not on file documented as of this encounter Visit Diagnoses Not on filedocumented in this encounter Care Teams Shirt Cleaner Relationship Specialty Start Date End Date Venice Davenport MD [address] [place] [address] PCP - General 06/05/14 02/13/17 documented as of this encounter
--- OUTSIDE RECORDS SUMMARY | 2023-12-22 01:12 | XMS_ITS | Clinical Summary ---
[place] [address] Care Team Providers Care Five Piece Expansion Maker Hand Name Role Phone AdyWang mayfield Primary Care Provider [phone] Social History Tobacco Use Types Packs/Day Years Used Date Smoking Tobacco: Never Assessed Sex and Gender Information Value Date Recorded Sex Assigned at Not on file Gender Identity Not on file Sexual Orientation Not on file Plan of Treatment Health Maintenance Due Date Last Done Comments CT Colonography 1955 Colonoscopy 1955 Colorectal Cancer Screening 1955 FIT DNA 1955 FIT 1955 Sigmoidoscopy (10 year) with FIT yearly 1955 Sigmoidoscopy 1955 Hepatitis C Screening 09/19/1973 Tetanus/Diphtheria/Pertussis Vaccines (1 - Tdap) 09/19 Breast Cancer Share Decision Needed 1995 Breast Cancer screening 1995 Zoster vaccine (1 of 2) 09/19/2005 Advance Directive 09/19/2010 Bone Density Scan 09/19/2020 Pneumoccocal Vaccine: 65+ (1 of 1 - PCV) 09/19/2020 Covid-19 Vaccine (2 - season) 11/26/202302/2022 Influenza (Flu) vaccine (1 o f 1 - Influenza standard series) 11/26/2023 Care Teams Five Piece Expansion Maker Hand Relationship Specialty Start Date End Date Wang Garsia DO [address] [place], [place] [id number] PCP - General Family Medicine 07/02/21
--- OUTSIDE RECORDS SUMMARY | 2023-12-22 01:12 | XMS_ITS | Encounter Summary ---
Author Organization [facility] Address [address] [place] [address] Care Team Providers Care Securities Supervisor Name Role Phone Unavailable Primary Care Provider Unavailabl e Encounter Details Date Type Department Care Team (Late st Contact Info) Description 09/18/[address] [facility] [address] [place] [address] [address] Social History Tobacco Use Types Packs/Day Years Used Date Smoking Tobacco: Never Assessed Sex and Gender Information Value Date Recorded Sex Assigned at Not on file Gender Identity Female 05/11/2021 12:29 EST Sexual Orientation Not on file documented as of this encounter Plan of Treatment Not on file documented as of this encounter Procedures Procedure Name Priority Date/Time Associated Diagnosis Comments HPV DETECTION, HIGH RISK TYPES Routine 09/18/2006 10:12 EDT CYTOPATHOLOGY Routine 09/18/2006 0:00 EDT documented in this encounter Results * HUMAN PAPILLOMA VIRUS DNA TEST (09/18/2006 10:12 EDT) Specimen Description Cervix, ThinPrep vial [facility] Result Negative for HPV types 16, 18, 31, 33, 35, 39, 45, 51, 52, 56, 58, 59, and 68. [facility] Report Status Final [id number] [facility] 09/18/2006 10:1 2 EDT 09/29/2006 10:12 EDT Pamela Self CNM MICROBIOLOGY - G ENERAL ORDERABLES [facility] [address] [place] [address] * CYTOPATHOLOGY (09/18/2006 0:00 EDT) Pathology Report: CYTOPATHOLOGY REPORT Reports generated via electronic interface contain original data; however they are lacking the format of the original report. Caution should be taken when reading/interpreti ng unformatted reports. Name: ? CAROLYNN WISE ? Accession #: ? [id number] : ? 1955 (Age: 51) ??F ?Collect Date: ? 09/18/2006 Location: ? [facility] ? Receive Date: ? 2006 Provider: ?PAMELA SELF CNM Copy to: ? Specimen/Source: ?ThinPrep Pap Test, Cervix/Endocervix, processed on [employer] ThinPrep Imaging System, with manual evaluation Last Menstrual Period: ? 09/18/06 Other: ? Additional clinical information: Previous paps WNL HPVDX - HPV testing requested regardless of diagnosis on current ThinPrep Pap test. ? SPECIMEN ADEQUACY ? Satisfactory for Evaluation - transformation zone component present GENERAL CATEGORIZATION ? Negative for Intraepithelial Lesion or Malignancy ? Document reviewed and electronically signed by: ? GEORGE Duckworth(ASCP) ? Report Date: ??09/28/2006 13:57 End of Report [facility] 09/18/2006 2006 Pamela Self CNM PATHOLOGY ORDERA CLARK Performing Organization Address City/State/[facility] Co de Phone Number [facility] [address] [place] [address] documented in this encounter Visit Diagnoses Not on filedocumented in this encounter
--- OUTSIDE RECORDS SUMMARY | 2023-12-22 01:12 | XMS_ITS | Referral Summary ---
Author Organization [facility] Address [address] [place] [address] Care Team Providers Care Health Consultant Name Role Phone Venice Davenport MD Unavailable [phone] Get Franz MD Primary Care Provider Unav [...] Take 1,000 mg by mouth daily. Active Czjra-0-ARK-EPA-Fish Oil (FISH OIL) 1,200 (144-216) mg capsule [...] PF 0.7 ml IM (65 yrs+) 03/16/2021 Social History Tobacco Use Types Packs/Day Years [...] 12:29 EST Sexual Orientation Not on file Plan of Treatment Not on file Care Teams Health Consultant Relationship Specialty Start Date End Date Get Franz MD [address] [place] [id number] PCP - General 03/23/17 Venice Davenport MD [address] [place] [address] 02/14/17
--- OUTSIDE RECORDS SUMMARY | 2023-12-22 01:12 | XMS_ITS | Encounter Summary ---
Author Organization [facility] BILLIE Powers [address] Care Team Providers Care Direct Service Provider Name Role Phone Unavailable Primary Care Provider Unavailabl e Encounter Details Date Type Department Care Team (Late st Contact Info) Description 02/16/2021 1:50 PM EST Ancillary Procedure Radiology Library at [facility] BILLIE Turner [id number] Babatunde Garcia MD [facility] [address] Social History Tobacco Use Types Packs/Day Years [...] Associated Diagnosis Comments FILM LIBRARY STORAGE ONLY ULTRASOUND STUDY Routine 02/16/2021 1:48 PM EST documented in this encounter Results * Film Library- Storage Only Ultrasound Study (02/16/2021 1:48 PM EST) Narrative ETHAN - 02/16/2021 1:48 PM EST This exam is auto-finalizing. It's purpose is for storage only. Babatunde Garcia MD IMG FILM LIBRARY ORD ERABLES [facility] [place] documented in this encounter Visit Diagnoses Not on filedocumented in this encounter
--- OUTSIDE RECORDS SUMMARY | 2023-12-22 01:12 | XMS_ITS | Encounter Summary ---
Author Organization [facility] Address [address] [place] [address] Care Team Providers Care Retail Service Specialist Name Role Phone Unknown, Provider Primary Care Provider [phone] Venice Davenport MD Unavailable [phone] Encounter Details Date Type Department Care Team (Latest Contact Info) Description 03/17/2017 8:48 EST - 03/17/2017 23:59 EST Hospital Encounter [address] [address] Unknown, Provider, Discharge Disposition: Home or Self Care Social History Tobacco Use Types Packs/Day Years Used Date Smoking Tobacco: Never Assessed Sex and Gender Information Value Date Recorded Sex Assigned at Not on file Gender Identity Female 05/11/2021 12:29 EST Sexual Orientation Not on file documented as of this encounter Discharge Disposition Disposition Code Departure Means Destination Home or Self [facility] documented in this encounter Plan of Treatment Not on file documented as of this encounter Visit Diagnoses Not on filedocumented in this encounter Care Teams Retail Service Specialist Relationship Specialty Start Date End Date Unknown, Provider, PCP - General 02/14/17 03/22/17 Venice Davenport MD [address] [place] [address] 02/14/17 documented as of this encounter
--- OUTSIDE RECORDS SUMMARY | 2023-12-22 01:12 | XMS_ITS | Encounter Summary ---
Author Organization [facility] Address [address] [place] [address] Care Team Providers Care Supervisor Engraving Name Role Phone Venice Davenport MD Unavailable [phone] Get Franz MD Primary Care Provider Unav ailable Reason for Visit * Reason Onset Date Comments Pre-visit Planning 05/14/2021 Encounter Details Date Type Department Care Team ([facility] st Contact Info) Description 05/14/2021 Telephone [facility] Adult Hematology & Oncology [address] [place] [phone] Babatunde Moreno RN Pre-visit Planning Social History Tobacco Use Types Packs/Day Years [...] encounter Miscellaneous Notes * Telephone Encounter - Babatunde Moreno RN - 05/14/2021 1118 EST Chart has been updated documented in this encounter Plan of Treatment Not on file documented as of this encounter Visit Diagnoses Not on filedocumented in this encounter Care Teams Supervisor Engraving Relationship Specialty Start Date End Date Get Franz MD [address] [place] [address] PCP - General 03/23/17 Venice Davenport MD [address] [place] [address] 02/14/17 documented as of this encounter
--- OUTSIDE RECORDS SUMMARY | 2023-12-22 01:12 | XMS_ITS | Encounter Summary ---
Author Organization [facility] Address [address] [place] [address] Care Team Providers Care Molding Supervisor Name Role Phone Venice Davenport MD Unavailable [phone] Get Franz MD Primary Care Provider Unav ailable Reason for Visit * (Routine/Next Available) - Receiving Office to Obtain Authorization Specialty Diagnoses / Procedures Referred By Karthikeyan palma Referred To Contact Procedures US OUTSIDE IMAGES BODY Imaging, External Referral ID Status Reason Start Date Expiration Date Visits Requested Visits Authorized [id number] Receiving Office to Obtain Authorization 07/05/2021 1 1 Encounter Details Date Type Department Care Team (Latest Contact Info) Description 02/16/2021 Hospital Encounter [facility] Secondary Reads [place] Discharge Disposition: Home or [...] Procedure Name Priority Date/Time Associated Diagnosis Comments US OUTSIDE IMAGES BODY Routine 07/05/2021 11:25 EDT documented in this encounter Results * US OUTSIDE IMAGES BODY (07/05/2021 11:25 EDT) Narrative 07/05/2021 11:25 EDT This is a non-reportable exam. External Imaging IMG OTHER IMAGING OR DERABLES documented in this encounter Visit Diagnoses Not on filedocumented in this encounter Care Teams Molding Supervisor Relationship Specialty Start Date End Date Get Franz MD [address] [place] [address] PCP - General 03/23/17 Venice Davenport MD [address] [place] [address] 02/14/17 documented as of this encounter
--- OUTSIDE RECORDS SUMMARY | 2023-12-22 01:12 | XMS_ITS | Continuity of Care Document ---
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 AAA - Misc Prescription 8 EA, TEST DIRECTED TODAY, 0 Refill(s) Start Date: 06/23/22 Status: Ordered cefuroxime 500 mg oral tablet 500 mg = 1 tab, Oral, every 12 hr, # 60 tab, 1 Refill(s), Pharmacy: [facility] #[id number] Start Date: 05/13/22 Stop Date: 07/12/22 Status: Ordered diclofenac 3% topical gel 100 g, APPLY TOPICALLY TO THE AFFECTED AREA TWICE DAILY., 0 Refill(s) Start Date: 06/23/22 Status: Ordered Eliquis 5 mg oral tablet 5 mg = 1 tab, Oral, BID, # 180 tab, 4 Refill(s), Pharmacy: [facility] #[id number] Start Date: 05/13/22 Stop Date: 08/06/23 Status: Ordered Fish Oil 1000 mg oral capsule 1,000 mg = 1 cap, Oral, Daily, # 90 cap, 0 Refill(s) Start Date: 05/13/22 Stop Date: 09/22/22 Status: Ordered gabapentin 300 mg oral capsule See Instructions, 1 capsule in the AM, 1 in the PM, and 2 capsules at bedtime, # 360 cap, 0 Refill(s), Pharmacy: [facility] #[id number] Start Date: 06/13/22 Status: Ordered antwan oral [...] Member Role: Primary Care Physician Address: Address: [address] [place] [id number] [place] Care Team Related Persons Name: RUTHIE PAZ
--- NOTE | 2023-12-22 07:15 | DI.MAMMO_ITS ---
Exam(s) MAMMO SCREENING EXAM: MAMMO SCREENING CLINICAL HISTORY: screening,Z12.31 TECHNIQUE: Bilateral full field digital CC and MLO mammographic images were obtained with 3D tomosyn thesis and utilizing computer aided detection (CAD). COMPARISON: There are no priors for comparison. FINDINGS: Masses/Architectural Distortion: None seen. Microcalcifications: No suspicious pleomorphic-type are seen. Skin Thickening/Nipple Retraction: None. IMPRESSION: 1. No evidence for malignancy is seen at this time. 2. Unless there is more urgent need, screening mammography is recommended, as per [employer] guidelines. BI-RADS Category 1 - Negative Breast Density - Category B - Scattered areas of fibroglandular density Breast density category C or D implies that the patient has dense breast tissue. Dense breast tissue is very common and is not abnormal but dense breast tissue can make it harder to find cancer on a ma mmogram. Also, dense breast tissue may increase their breast cancer risk. This information about the result of the mammogram report was provided to the patient to raise their awareness. Use this report when you speak with the patient about their risks for breast cancer, which includes their family hist ory. At that time, you may recommend for more screening tests (Ultrasound or MRI) as they might be us eful based on their risk. A negative radiographic report should not delay biopsy if a dominant or clinically suspicious mass is present. Up to ten percent of cancers are not identified on mammography. A negative report may reinforce clinical impression. Adenosis and dense breasts may obscure an underlying neoplasm. False positive reports average 6 to 10%. Patient will receive a letter notifying them of these results.
--- NOTE | 2023-12-22 07:15 | DI.US_ITS ---
Exam(s) US PELVIS TRANSVAGINAL EXAM: US PELVIS TRANSVAGINAL CLINICAL HISTORY: POSTMENOPAUSAL BLEEDING,N95.0. TECHNIQUE: Transabdominal and transvaginal pelvic ultrasound was performed using standard protocol. COMPARISON: CT ABD PELVIS WITH CONTRAST from 02/15/2017 FINDINGS: UTERUS: Position: Anteverted. Size: 7.5 long by 3.9 AP by 5.0 transverse cm Endometrium: 0.9 cm. The endometrial stripe is homogeneous. No abnormal blood flow is seen. Myometrium: At least 2 discrete uterine fibroids are present. The largest is in the posterior body a nd measures 1.6 x 1.0 x 1.4 cm. Is also a 1.4 x 1.4 x 1.5 cm fundal uterine fibroid. Cervix: Nabothian cysts are present. OVARIES: The right ovary was not visualized transabdominally or transvaginally. No suspicious right adnexal masses are seen sonographically. Left: 1.8 x 1.4 x 1.8 cm Cyst or mass: No suspicious cystic or solid masses. DOPPLER: Color: Symmetric and uniform flow to both ovaries. CUL-DE-SAC: Free fluid: None. Other: None. IMPRESSION: 1. Thickened endometrial stripe is 0.9 cm in this postmenopausal patient. Biopsy should be considere d. 2. Uterine fibroids. 3. The right ovary was not visualized on this examination. No suspicious right adnexal masses are se en sonographically. 4. Unremarkable left ovary. DATA REPOSITORY:
== END 2023-12-22 01:29 ==
LOC: DI 01:10
PROVIDERS: PCP Family Medicine; Visit Provider Obstetrics & Gynecology
DX: N95.0 Postmenopausal bleeding (principal); Z12.31 Encounter for screening mammogram for malignant neoplasm of breast
CPT/HCPCS: 77063; 77067; 76830; 76856

== ENCOUNTER 2024-03-22 15:41 | Outpatient (REF) | payer MEDICARE, OTHER, SELFPAY ==
--- NOTE | 2024-03-22 15:30 | ENDOMET_PTH ---
PATIENT: JEREMY JONAS LOC: [facility] U#:[id number] AGE/SX: 68/F ROOM: RE03/22/[address]: Vicki Cali MD : 1955 BED: DIS: 03/22/2024 SPEC #: [id number] RECD: 03/22/24 16:21 STATUS: JEMAL REQ #: [id number] DEBORAH: 03/22/24 15:[address]: Vicki Cali DEPT: Surgical Specimen RECD BY: Gracie Watson ENTERED: 03/22/24 16:22 SP TYPE: Endomet OTHR DR: Wang Garsia Tissues: 1 - ENDOMETRIUM BX/JHONATANETTE Procedures: GROSS AND MICRO LEVEL 4 Comments: [id number]
--- NOTE | 2024-03-22 15:30 | PAPFT_PTH ---
PATIENT: JEREMY JOANS LOC: [facility] U#:[id number] AGE/SX: 68/F ROOM: RE03/22/[address]: Vicki Cali MD : 1955 BED: DIS: 03/22/2024 SPEC #: [id number] RECD: 03/22/24 16:16 STATUS: JEMAL REQ #: [id number] DEBORAH: 03/22/24 15:[address]: Vicki Cali DEPT: [facility] Cytology RECD BY: Gracie Watson ENTERED: 03/22/24 16:17 SP TYPE: PAPFT OTHR DR: Wang Garsia Tissues: 1 - CX/ENDOCX FOR PAP SMEARS Procedures: PAP THIN PREP/[facility] Screening HPV DNA PROBE Comments: [id number] (HPV 16 & 18/45)
== END 2024-03-22 15:42 | disposition home or self-care (01) ==
LOC: LBN 15:41
PROVIDERS: PCP Family Medicine; Visit Provider Obstetrics & Gynecology
DX: Z12.4 Encounter for screening for malignant neoplasm of cervix (principal); R30.0 Dysuria; R82.89 Other abnormal findings on cytological and histological examination of urine
CPT/HCPCS: 88142; 88305; 87086; 87624